=== PATIENT | female | born 1945 | race Caucasian/White ===

== ENCOUNTER 2017-05-24 09:57 | Emergency (ER) | payer MEDICARE, BC ==
[2017-05-24 10:07] VITALS: BP 107/50
--- NOTE | 2017-05-24 10:20 | UC ---
Nausea/Vomiting/Diarrhea HPI - HPI Summary HPI Summary: 72 year old female presents with complains of vomiting blood. - History of Current Complaint Chief Complaint: UCGI Stated Complaint: STOMACH ISSUES Time Seen by Provider: 05/24/17 10:14 Hx Obtained From: Patient Onset/Duration: Sudden Onset Severity Initially: Moderate Severity Currently: Moderate Pain Scale Used: 0-10 Numeric - 5 Location: Epigastric Character: Sharp - Allergies/Home Medications Allergies/Adverse Reactions: Allergies Allergy/AdvReac Type Severity Reaction Status Date / Time Latex Allergy Rash Verified 05/24/17 10:08 Bandaids Allergy Rash Uncoded 05/24/17 10:08 Home Medications: Home Medications Aspirin [Aspirin 81 MG TAB] 2 tab PO ONCE 05/24/17 [History Confirmed 05/24/17] Naproxen Sodium [Naproxen Sodium 220 mg] 2 tab PO Q12HR PRN 05/24/17 [History Confirmed 05/24/17] Sertraline* [Zoloft*] 50 mg PO DAILY 05/24/17 [History Confirmed 05/24/17] PMH/Surg Hx/FS Hx/Imm Hx Previously Healthy: Yes - Surgical History Surgical History: Yes Surgery Procedure, Year, and Place: Benign ovarian cyst x 2. Right thumb surgery. - Family History Known Family History: Positive: None - Social History Alcohol Use: Occasionally Substance Use Type: None Smoking Status (MU): Never Smoked Tobacco - Immunization History Most Recent Influenza Vaccination: NOT UTD Review of Systems Constitutional: Negative Skin: Negative Eyes: Negative ENT: Negative Respiratory: Negative Cardiovascular: Negative Gastrointestinal: Diarrhea, Other - vomiting blood Genitourinary: Negative Motor: Negative Neurovascular: Negative Musculoskeletal: Negative Neurological: Negative Psychological: Negative All Other Systems Reviewed And Are Negative: Yes Physical Exam Triage Information Reviewed: Yes Vital Signs: Initial Vital Signs Temp 36.1 C 05/24/17 10:00 Pulse 70 05/24/17 10:00 Resp 18 05/24/17 10:00 BP 107/50 05/24/17 10:00 Pulse Ox 99 05/24/17 10:00 Vital Signs Reviewed: Yes Eye Exam: Normal ENT Exam: Normal Dental Exam: Normal Neck exam: Normal Neck: Positive: 1 Respiratory Exam: Normal Cardiovascular Exam: Normal Abdominal Exam: Normal Musculoskeletal Exam: Normal Neurological Exam: Normal Psychological Exam: Normal Skin Exam: Normal Naus/Vom/Diarrhea Course/Dx - Differential Dx/Diagnosis Provider Diagnoses: hemoptysis. epigastric pain Condition At Discharge: Stable Discharge - Discharge Plan Condition: Stable Disposition: OTHER Discharge Disposition Comment: patient suggested to go to the er Patient Education Materials: Gastrointestinal Bleeding (ED) Referrals: Meet Hines MD [Primary Care Provider] - Additional Instructions: PATIENT SUGGESTED TO GO TO THE ER FOR GI BLEED
== END 2017-05-24 10:27 ==
LOC: UCEAST 09:57
DX: R04.2 Hemoptysis (principal); R10.13 Epigastric pain; R19.7 Diarrhea, unspecified; R11.10 Vomiting, unspecified; Z91.040 Latex allergy status; Z88.8 Allergy status to other drugs, medicaments and biological substances
CPT/HCPCS: 99212; G0463

== ENCOUNTER 2017-05-24 10:45 | Emergency (ER) | payer MEDICARE, BC ==
[2017-05-24 11:57] LABS: ABS Basophils 0 10^3/ul (0-0.2); ABS Eosinophils 0.2 10^3/ul (0-0.6); ABS Monocytes 0.7 10^3/ul (0-0.8); ABS Neutrophils 4.3 10^3/ul (1.5-7.7); ABS Nucleated RBC 0 10^3/ul; Eosinophil % 2.8 % (0-6); Hematocrit 42 % (35-47); Hemoglobin 14.1 g/dl (12.0-16.0); Lymphocyte % 15.7 % (25-47); Mean Corpuscular HGB Conc 34 g/dl (31-36); Mean Corpuscular Hemoglobin 30 pg (27-31); Mean Corpuscular Volume 87 fL (80-97); Mean Platelet Volume 9 um3 (7.4-10.4); Nucleated Red Blood Cells % 0.1; Platelet Count 203 10^3/ul (150-450); Red Blood Count 4.77 10^6/ul (4.0-5.4); Red Cell Distribution Width 14 % (10.5-15); White Blood Count 6.1 10^3/ul (3.5-10.8)
[2017-05-24 12:19] LABS: EGFR Non-African American 75.2 (>60)
[2017-05-24 12:21] LABS: INR 1.1 (0.77-1.02)
[2017-05-24 13:04] VITALS: BP 112/56
--- NOTE | 2017-05-24 17:06 | ED ---
Quentin Luna Julia, scribed for Rip Alamo MD on 05/24/17 at 1133 . Abdominal Pain/Female - HPI Summary HPI Summary: This patient is a 72 year old F presenting to [facility] accompanied by her with a chief complaint of abdominal pain and hematemesis since yesterday at 19: 00. The patient rates the pain 0/10 in severity. Symptoms aggravated by nothing. Symptoms alleviated by vomiting. Patient reports vomiting with about a tablespoon of bright red blood and a headache and diarrhea occurring yesterday. Patient denies pain or BM today. - History of Current Complaint Chief Complaint: EDGIBleed Stated Complaint: GI PROBLEM-SENT FROM Time Seen by Provider: 05/24/17 11:22 Hx Obtained From: Patient Onset/Duration: Resolved Severity Currently: None Pain Intensity: 0 Pain Scale Used: 0-10 Numeric Aggravating Factor(s): Nothing Alleviating Factor(s): Vomiting Associated Signs and Symptoms: Positive: Other: - headache and diarrhea occurring yesterday Allergies/Adverse Reactions: Allergies Allergy/AdvReac Type Severity Reaction Status Date / Time Latex Allergy Rash Verified 05/24/17 10:08 Bandaids Allergy Rash Uncoded 05/24/17 10:08 PMH/Surg Hx/FS Hx/Imm Hx GI History: Reports: Hx Gastroesophageal Reflux Disease Musculoskeletal History: Denies: Hx Rheumatoid Arthritis, Hx Osteoporosis Sensory History: Denies: Hx Deafness - Surgical History Surgery Procedure, Year, and Place: Benign ovarian cyst x 2. Right thumb surgery. GI scope permormed March 2017. Infectious Disease History: No Infectious Disease History: Denies: Traveled Outside the [place] in Last 30 Days - Family History Known Family History: Positive: Cardiac Disease - Social History Alcohol Use: Occasionally Hx Substance Use: No Substance Use Type: Reports: None Hx Tobacco Use: No Smoking Status (MU): Never Smoked Tobacco Review of Systems Positive: Vomiting, Diarrhea, Other - Hematemesis Positive: Headache All Other Systems Reviewed And Are Negative: Yes Physical Exam - Summary Physical Exam Summary: Appearance: The patient is well-nourished in no acute distress and in no acute pain. Skin: The skin is warm and dry and skin color reflects adequate perfusion. HEENT: The head is normocephalic and atraumatic. The pupils are equal and reactive. The conjunctivae are clear and without drainage. Nares are patent and without drainage. Mouth reveals moist mucous membranes and the throat is without erythema and exudate. The external ears are intact. The ear canals are patent and without drainage. The tympanic membranes are intact. Neck: the neck is supple with full range of motion and non-tender. There are no carotid bruits. There is no neck vein distension. Respiratory: Chest is non-tender. Lungs are clear to auscultation and breath sounds are symmetrical and equal. Cardiovascular: Heart is regular rate and rhythm. There is no murmur or rub auscultated. There is no peripheral edema and pulses are symmetrical and equal. Abdomen: The abdomen is soft and non-tender. There are normal bowel sounds heard in all four quadrants and there is no organomegaly palpated. Musculoskeletal: There is no back tenderness noted. Extremities are non-tender with full range of motion. There is good capillary refill. There is no peripheral edema or calf tenderness elicited. Neurological: Patient is alert and oriented to person, place and time. The patient has symmetrical motor strength in all four extremities. Cranial nerves are grossly intact. Deep tendon reflexes are symmetrical and equal in all four extremities. Psychiatric: The patient has an appropriate affect and does not exhibit any anxiety or depression. Triage Information Reviewed: Yes Vital Signs On Initial Exam: Initial Vitals Temp Pulse Resp BP Pulse Ox 97.7 F 62 15 114/70 98 05/24/17 10:50 05/24/17 10:50 05/24/17 10:50 05/24/17 10:50 05/24/17 10:50 Vital Signs Reviewed: Yes Diagnostics - Vital Signs Vital Signs Temp Pulse Resp BP Pulse Ox 05/24/17 10:50 97.7 F 62 15 114/70 98 - Laboratory Lab Results: Lab Results 05/24/17 05/24/17 05/24/17 Range/Units 11:48 11:48 11:48 WBC 6.1 (3.5-10.8) 10^3/ul RBC 4.77 (4.0-5.4) 10^6/ul Hgb 14.1 (12.0-16.0) g/dl Hct 42 (35-47) % MCV 87 (80-97) fL MCH 30 (27-31) pg MCHC 34 (31-36) g/dl RDW 14 (10.5-15) % Plt Count 203 (150-450) 10^3/ul MPV 9 (7.4-10.4) um3 Neut % (Auto) 70.0 (38-83) % Lymph % (Auto) 15.7 L (25-47) % Wright % (Auto) 10.9 H (1-9) % Eos % (Auto) 2.8 (0-6) % Baso % (Auto) 0.6 (0-2) % Absolute Neuts (auto) 4.3 (1.5-7.7) 10^3/ul Absolute Lymphs (auto) 1.0 (1.0-4.8) 10^3/ul Absolute Monos (auto) 0.7 (0-0.8) 10^3/ul Absolute Eos (auto) 0.2 (0-0.6) 10^3/ul Absolute Basos (auto) 0 (0-0.2) 10^3/ul Absolute Nucleated RBC 0 10^3/ul Nucleated RBC % 0.1 INR (Anticoag Therapy) 1.10 H (0.77-1.02) Sodium 134 (133-145) mmol/L Potassium 3.5 (3.5-5.0) mmol/L Chloride 101 (101-111) mmol/L Carbon Dioxide 29 (22-32) mmol/L Anion Gap 4 (2-11) mmol/L BUN 12 (6-24) mg/dL Creatinine 0.76 (0.51-0.95) mg/dL Est GFR ( Amer) 96.8 (>60) Est GFR (Non-Af Amer) 75.2 (>60) BUN/Creatinine Ratio 15.8 (8-20) Glucose 101 H (70-100) mg/dL Calcium 9.3 (8.6-10.3) mg/dL Total Bilirubin 0.50 (0.2-1.0) mg/dL AST 26 (13-39) U/L ALT 20 (7-52) U/L Alkaline Phosphatase 69 (34-104) U/L Total Protein 7.6 (6.4-8.9) g/dL Albumin 3.8 (3.2-5.2) g/dL Globulin 3.8 (2-4) g/dL Albumin/Globulin Ratio 1.0 (1-3) Result Diagrams: 05/24/17 11:48 05/24/17 11:48 Lab Statement: Any lab studies that have been ordered have been reviewed, and results considered in the medical decision making process. Abdominal Pain Fem Course/Dx - Course Course Of Treatment: was sent over from [facility] asymptomatic after vomiting up a little blood yesterday after not feeling well all day and sleeping most of the day. She feels better today. No black stools although she hasn't had a stool since Thursday. She looked well and her labs were fine with a NL H&H and a NL BUN/Creat. I don't think this is anything dangerous but she did have an EGD a couple years ago which showed gastric erosions so I will refer her back to Dr. Hines to consider refering her back to Dr. Larsen. I encouraged her to take her prn famotidine BID. - Diagnoses Provider Diagnoses: Hematemesis Discharge - Discharge Plan Condition: Stable Disposition: HOME Patient Education Materials: Hematemesis (ED) Referrals: Meet Hines MD [Primary Care Provider] - Additional Instructions: Patient is instructed to take her Famotidine every day and to follow up with Dr. Dsouza, PCP. RETURN TO THE EMERGENCY DEPARTMENT FOR CHANGING OR WORSENING SYMPTOMS. The documentation as recorded by the Quentin dumont Julia accurately reflects the service I personally performed and the decisions made by me, Rip Alamo MD.
== END 2017-05-24 13:31 | disposition home or self-care (01) ==
LOC: ED 10:45
DX: K92.0 Hematemesis (principal); R51 Headache; R19.7 Diarrhea, unspecified; R11.10 Vomiting, unspecified
CPT/HCPCS: 36415; 80053; 85025; 85610; 99282

== ENCOUNTER 2017-12-11 16:13 | Emergency (ER) | payer MEDICARE, OTHER ==
[2017-12-11 16:26] VITALS: BP 114/76
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
== END 2017-12-11 17:30 | disposition home or self-care (01) ==
LOC: UCEAST 16:13
DX: S16.1XXA Strain of muscle, fascia and tendon at neck level, initial encounter (principal); Z91.040 Latex allergy status; Z88.8 Allergy status to other drugs, medicaments and biological substances; V49.60XA Unspecified car occupant injured in collision with unspecified motor vehicles in traffic accident, initial encounter; Y92.9 Unspecified place or not applicable
CPT/HCPCS: 72020; 72050; 99212; G0463

== ENCOUNTER 2018-08-01 16:13 | Emergency (ER) | payer MEDICARE, BC ==
--- OUTSIDE RECORDS SUMMARY | 2018-08-01 16:22 | XMS REPORT | Continuity of Care Document ---
:1945 External Reference #:[id number] Author Name Meet Hines MD Address [facility] [place] [address] Care Team Providers Name Role Phone Meet Hines MD FACP Care Team Information Proof Clerk Unavailable Meet Hines MD FACP Primary Care Physician Unavailable Payers Date Identification Numbers Payment Provider Subscriber Effective: 2012 Policy Number: [id number] [place] Ankita Kunz PayID: [id number] [address] [place] [address] Policy Number: [id number] [facility] Brendasuzi PayID: [id number] [address] [place] [address] Advance Directives Description No Information Available Problems Date Description Provider Status Onset: 05/12/2008 Depressive disorder Meet Hines MD Active Onset: 11/06/2010 Vitamin D deficiency Meet Hines MD Active Onset: 04/29/2012 Hormone replacement therapy Meet Hines MD Active Onset: 01/04/2016 Moderate recurrent major depression Meet Hines MD Active Onset: 09/10/2015 Localized, 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 fat (05/31/2010) (age Causes embolism. 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 Guns in Home No Currently Active Patient is currently sexually active Allergies, Adverse Reactions, Alerts Date Description Reaction Status Severity Comments 08/29/2008 NKDA Active 07/14/2007 Flagyl Inactive Not sure, with second use had some issues Medications Medication Date Status Form Strength Qnty SIG Indications Ordering Provider Trazodone HCL Active Tablets 50mg 30tabs 1 tab by G47.00 Dsouza A 019 mouth every MD Flora night at bedtime Sertraline Active Tablets 100mg 30tabs take 1 F33.1 Dsouza A HCL 018 tablet by MD Flora mouth daily for depression Tylenol Active Tablets 325mg 1-2 by mouth M19.041 Dsouza A 016 three times MD Flora a day as needed M54.5 Epipen 02/06/2015 Active Solution 0.3mg/0.3ML 1units use as T63.461A Dsouza 2-Eric Auto-Inject directed A Flora, as needed MD Luna 07/29/2014 Active Capsules 1mg 1 mg G47.00 Unknown n orally at night as needed for insomnia. Vitamin 11/01/2013 Active Liquid 1000Units / 15 drops 268.9 Dsouza D3 Drop twice a A sg Hines MD 04/27/2013 Active Chewtabs 500mg 2 chew and 530.81 Dsouza swallow by A jesica Hines MD tablets as needed 4 times a day Cetirizi 08/23/2012 Active Tablets 10mg take 1 995.3 Unknown ne HCL tablet by mouth daily for hayfever Famotidi 06/03/2011 Active Tablets 20mg 60tabs take one K21.9 Dsouza ne tablet by A jesica Hines MD twice a day as needed for gastroesop hageal reflux disease Proctoso 12/10/2010 Active Cream 2.5% 28.350g apply K64.4 Dsouza l HC m topically A [place], to MD affected area 3 times a day Diazepam 08/29/2008 Active Tablets 5mg 30tabs take / M54.89 Dsouza to 1 A [place], tablet by mouth at bed time as needed for muscle spasm with pain M62.838 Estrogen & Progesterone 07/13/2007 Active bid 627.2 Amy Fonseca MD V07.4 Shingrix 12/24 Hx Suspension Rec 50mc 1uni one intramuscular Z00. Meet g ts dose now and repeat 01 MD Flora - 2nd dose after 2-6 06/03 months. Prevnar 13 12/24 Hx Suspension 1uni administer half a Z00. Dsouza ts milliliters 01 MD Flora - intramuscularly one 06/03 time for inactivated vaccination to prevent pneumococcal infection Sertraline HCL 12/23 Hx Tablets 50mg 60ta take 2 tablets by F33. Meet bs mouth daily for 1 MD Flora - depression 12/14 Tinidazole 04/03 Hx Tablets 500m 12ta Take 4 tablets by R19. Meet g bs mouth once daily 7 MD Flora - with food for 3 Sertraline HCL 03/04 Hx Tablets 25mg 30ta take 1 tablet by F33. Meet bs mouth daily for 1 MD Flora - social anxiety and 12/23 depression ( of 75 mg daily by combining with 50 mg tablet) Sertraline HCL 01/17 Hx Tablets 50mg 30ta take 1 tablet by F33. Dsouza bs mouth daily for 1 MD Flora - depression 12/23 Sertraline HCL 01/03 Hx Tablets 25mg 30ta Take 1 tablet by F3Peg. Meet bs mouth daily for 1 MD Flora - depression 01/17 Cyclobenzaprine HCL 11/11 Hx Tablets 10mg 30ta Take 1 tablet by S33. Meet bs mouth 3 times per 5xxA MD Flora - day for muscle 06/03 spasm with pain needed. Naproxen Sodium 10/31 Hx Tablets 220m 2 tab by mouth 719. Jak g twice a day with [address] [place], - food [employer] 11/08 724.3 Flexeril 10/24/2014 - Hx Tablets 10mg 30tabs Take 1 tablet 847.2 Jak Terry 11/12/[address] [place], [employer] times per day for muscle spasm with pain. Use for 5-7 days and then stop. Aleve 07/26/2014 - Hx Tablets 220mg 2 tabs by 719.46 Jak Terry 08/05/2014 mouth twice a [address] [place], [employer] day for elbow joint pain 724.5 841.8 Activated 03/22/2014 - Hx OTC Rx: 2 787.3 Jak Terry Charcoal 11/07/2014 tab by mouth [address] [place], once for [employer] stomach and bowel gas, and then per directions on bottle. Kefir 03/22/2014 - Hx Drink Kefir 787.3 Jak D 11/07/2014 or other [facility] cultured milk [employer] products at least once daily to promote healthy bowel poli. Betamethasone 07/05/2013 - Hx Cream 0.05% 45g apply 373.32 Dsouza A Dipropionate 11/07/2014 m topically to MD Flora the affected area two times a day for skin condition with itching Vitamin D3 04/27/2013 - Hx Liquid 5000Uni 10,000 units 268.9 Dsouza A 04/27/2013 t/ML by mouth MD Flora every week Vitamin D3 04/27/2013 - Hx Liquid 1000Uni 15 drops 268.9 Dsouza A 11/01/2013 ts / every Thursday MD Flora Drop Vitamin D3 10/26/2012 - Hx Capsules 5000Uni 2 by mouth 530.81 Dsouza A 10/26/2012 t every week MD Flora Amitriptyline HCL 09/30/2012 - Hx Tablets 25mg 90t take 1 tablet F33.1 Dsouza A 09/30/2012 abs by mouth MD Flora daily at bedtime for depression Amitriptyline HCL 09/30/2012 - Hx Tablets 10mg 90t take 1 tablet 311 Jak D 08/04/[address] [place], daily at [facility] bedtime for depression 780.52 Amitriptyline 08/26/2012 - Hx Tablets 10mg 30tabs Take 1 tablet F33.1 Dsouza A HCL 09/25/2012 by mouth MD Flora daily at bedtime for depression Zostavax 04/29/2012 - Hx Solution [id number] 1units 1 injection Dsouza A 08/25/2012 Rec nt/0.6 MD Flora 5ML Vitamin D3 11/04/2011 - Hx Tablets 2000Un 1 by mouth 268.9 Dsouza A 04/24/2012 it every day MD Flora Melatonin 03/31/2011 - Hx Capsules 5mg 30caps 1 po qhs 780.52 Dsouza A 11/04/2011 MD Flora Anusol-HC 03/31/2011 - Hx Cream 2.5% 30gm Apply 1 455.3 Dsouza A 04/29/2012 application MD Flora topically to affected area 3 times a day for hemorrhoids Amitriptyline 03/31/2011 - Hx Tablets 25mg 90tabs Take 1 tablet 311 Dsouza A HCL 08/26/2012 by mouth MD Flora daily at bedtime for depression V58.69 Amitriptyline HCL 02/03/2011 - Hx Tablets 10mg 2 by 311 Unknown 03/31/2011 mouth every day Vitamin D3 11/06/2010 - Hx Capsules 2000Unit 1 po qd 268.9 Dsouza A 09/23/2011 MD Flora Trazodone HCL 04/30/2010 - Hx Tablets 50mg 135t 1 /2 tab F33.1 Dsouza A 02/03/2011 abs by mouth MD Flora every night G47.00 Zyrtec Allergy 10/30/2009 - Hx Capsules 10mg 1 po qd 477.9 Dsouza A 11/04/2011 MD Flora Penicillin V 10/30/2009 - Hx Tablets 500mg 40tabs 1 po q6h Dsouza A Potassium 11/09/2009 MD Flora Amoxicillin 07/03/2009 - Hx Capsules 500mg 30caps 1 po tid Dsouza A 10/30/2009 MD Flora Trazodone HCL 06/25/2009 - Hx Tablets 50mg 60tabs 2 po qhs 311 Dsouza A 04/30/2010 MD Flora 780.52 Mineral Oil 06/20/2009 - Hx Oil 1-2 tbsp po 564.00 Dsouza A 10/30/2009 qd MD Flora Trazodone HCL 06/20/2009 - Hx Tablets 100mg 1/2-1 po qhs F33.1 Dsouza A 06/25/2009 MD Flora G47.00 Trazodone HCL 05/15/2009 - Hx Tablets 100mg 30tabs 1 po qhs F33.1 Dsouza A 06/20/2009 MD Flora G47.00 Trazodone HCL 05/02/2009 - Hx Tablets 50mg 30tabs 1 PO QHS for 311 Dsouza A 05/15/2009 1 week and MD Flora after that 2 PO QHS 780.52 Tamiflu 11/01/2008 - Hx Capsules 75mg 10caps 1 PO bid For Dsouza A 12/05/2008 5 Days MD Flora Diflucan 08/29/2008 - Hx Tablets 150mg 5tabs 1 po qd prn Dsouza A 12/05/2008 MD Flora Ciprofloxacin HCL 08/29/2008 - Hx Tablets 250mg 20tabs 1 PO bid For Dsouza A 12/05/2008 5 Days MD Flora Caltrate 600+D 08/29/2008 - Hx Tablets 1 PO bid V7 Dsouza A 09/23/2011 0. MD Flora 0 Melatonin 07/13/2007 - Hx Capsules 3mg 1 po qhs prn 78 Unknown 05/02/2009 0. 52 Nasonex 07/13/2007 - Hx Suspension 50mcg/A 17gm 1 Intranasal 47 Dsouza A 03/31/2011 ct qd prn 7. MD Flora 9 Methylprednisolone 07/13/2007 - Hx Tablets 4mg prn 72 Unknown 08/29/2008 4. 5 Tri-Est - Hx 2.5mg 1/2 lozenge Unknown 11/04/2011 qd Immunizations CPT Code Status Date Vaccine Reaction Lot # [id number] Given 01/23/2018 Influenza Vaccine Quadrivalent Preser/Antibiotic Free Im Use 51277 Given 2016 Influenza Virus Split 3 Yrs And Above For Intramuscular Use 21893 Given 03/18/2013 Influenza Virus Split 3 Yrs And Above For Intramuscular Use 04856 Given 05/06/2012 Zoster Shingles Vaccine For Subcutaneous Injection 78189 Given 03/29/2012 Influenza Virus Split 3 Yrs And Above For Intramuscular Use 27792 Given 04/29/2011 Influenza Virus Split 3 Yrs And Above For Intramuscular Use 15235 Given 04/30/2010 Pneumococcal Vaccine 2Yrs Or Older PNEUMO [id number] 24123 Given 03/25/2010 Influenza Virus Split 3 Yrs And Above For Intramuscular Use 95260 Given 08/29/2008 Tdap-Tetanus, Diphtheria TDAP [id number] Toxoids/Acellular Pertussis Vaccine 7+ [id number] Refused 03/31/2011 Influenza Virus Split 3 Yrs And 03/31/11 Pt will get her Above For Intramuscular Use flu shot at a local pharmacy due to cost issues. Vital Signs Date Vital Result Comment 07/26/2018 1:36pm Body Temperature 98.4 F 07/21/2018 1:18pm Body Temperature 98.1 F 06/03/2018 1:02pm Heart Rate 68 /min BP Systolic 100 mmHg BP Diastolic 60 mmHg Weight 142.00 lb 12/24/2017 1:03pm Heart Rate 64 /min BP Systolic 105 mmHg BP Diastolic 65 mmHg BMI (Body Mass Index) 25.8 kg/m2 Weight 140.00 lb Height 61.75 inches 5'1.75" 09/15/2017 2:33pm Body Temperature 99.3 F Heart Rate 80 /min 07/02/2017 1:12pm Heart Rate 76 /min Weight 142.00 lb 12/23/2016 1:08pm Body Temperature 98.4 F O2 % BldC Oximetry 97 % Heart Rate 78 /min BP Systolic 105 mmHg BP Diastolic 65 mmHg BMI (Body Mass Index) 25.6 kg/m2 Weight 140.00 lb Height 62 inches 5'2" 04/03/2016 5:11pm Body Temperature 98.4 F Heart Rate 80 /min BP Systolic 100 mmHg BP Diastolic 70 mmHg 03/04/2016 4:21pm Heart Rate 68 /min BP Systolic 100 mmHg BP Diastolic 70 mmHg Weight 138.00 lb 11/12/2015 1:29pm O2 % BldC Oximetry 97 % Heart Rate 69 /min BP Systolic 105 mmHg BP Diastolic 70 mmHg BMI (Body Mass Index) 26.0 kg/m2 Weight 140.00 lb Height 61.5 inches 5'1.50" 09/10/2015 2:54pm Weight 140.00 lb 11/08/2014 1:07pm O2 % BldC Oximetry 97 % Heart Rate 77 /min BP Systolic 100 mmHg BP Diastolic 70 mmHg BMI (Body Mass Index) 25.1 kg/m2 Weight 137.00 lb Height 62 inches 5'2" 10/31/2014 3:57pm Body Temperature 98.7 F O2 % BldC Oximetry 98 % Heart Rate 65 /min BP Systolic 98 mmHg BP Diastolic 70 mmHg 10/24/2014 11:16am Body Temperature 98.0 F O2 % BldC Oximetry 96 % Heart Rate 74 /min BP Systolic 108 mmHg BP Diastolic 54 mmHg BMI (Body Mass Index) 23.0 kg/m2 Weight 130.00 lb Height 63 inches 5'3" 08/04/2014 11:02am Body Temperature 99.2 F O2 % BldC Oximetry 97 % Heart Rate 70 /min BP Systolic 100 mmHg BP Diastolic 62 mmHg Height 63 inches 5'3" 07/26/2014 3:46pm Body Temperature 97.7 F O2 % BldC Oximetry 99 % Heart Rate 63 /min BP Systolic 118 mmHg BP Diastolic 67 mmHg Height 63 inches 5'3" 07/21/2014 3:37pm Body Temperature 98.3 F O2 % BldC Oximetry 98 % Heart Rate 77 /min BP Systolic 100 mmHg BP Diastolic 62 mmHg Height 63 inches 5'3" 03/22/2014 9:19am Body Temperature 98.3 F O2 % BldC Oximetry 97 % Heart Rate 82 /min BP Systolic 102 mmHg BP Diastolic 64 mmHg Height 63 inches 5'3" 11/01/2013 10:03am Body Temperature 98.1 F O2 % BldC Oximetry 98 % Heart Rate 79 /min BP Systolic 105 mmHg BP Diastolic 60 mmHg BMI (Body Mass Index) 24.6 kg/m2 Weight 139.00 lb in office,no clothes Height 63 inches 5'3" 07/05/2013 11:15am Body Temperature 98.5 F O2 % BldC Oximetry 98 % Heart Rate 82 /min 06/24/2013 10:08am Body Temperature 98.5 F 05/30/2013 11:11am Body Temperature 98.8 F O2 % BldC Oximetry 96 % Ra, AT Rest Heart Rate 71 /min BMI (Body Mass Index) 24.4 kg/m2 Weight 138.00 lb Height 63 inches 5'3" 04/27/2013 1:03pm Body Temperature 98.5 F O2 % BldC Oximetry 99 % Ra, AT Rest Heart Rate 73 /min BP Systolic 128 mmHg BP Diastolic 75 mmHg BMI (Body Mass Index) 24.6 kg/m2 Weight 139.00 lb Height 63 inches 5'3" 11/17/2012 9:03am Heart Rate 64 /min BP Systolic 95 mmHg BP Diastolic 60 mmHg BMI (Body Mass Index) 23.9 kg/m2 Weight 135.00 lb Height 63 inches 5'3" 10/26/2012 1:33pm Heart Rate 62 /min BP Systolic 105 mmHg BP Diastolic 60 mmHg BMI (Body Mass Index) 24.3 kg/m2 Weight 137.00 lb Height 63 inches 5'3" 08/26/2012 2:31pm BMI (Body Mass Index) 25.0 kg/m2 Weight 141.00 lb Height 63 inches 5'3" 04/29/2012 11:08am Heart Rate 64 /min BP Systolic 100 mmHg BP Diastolic 60 mmHg BMI (Body Mass Index) 26.2 kg/m2 Weight 148.00 lb Height 63 inches 5'3" 11/04/2011 10:55am Heart Rate 72 /min BP Systolic 105 mmHg BP Diastolic 70 mmHg BMI (Body Mass Index) 25.7 kg/m2 Weight 145.00 lb Height 63 inches 5'3" 06/03/2011 11:12am Heart Rate 60 /min BP Systolic 100 mmHg BP Diastolic 60 mmHg Weight 142.00 lb 03/31/2011 2:30pm Heart Rate 62 /min BP Systolic 128 mmHg BP Diastolic 80 mmHg 11/06/2010 2:27pm Heart Rate 64 /min BP Systolic 105 mmHg BP Diastolic 65 mmHg BMI (Body Mass Index) 25.2 kg/m2 Weight 142.00 lb Height 63 inches 5'3" 04/30/2010 11:20am Heart Rate 66 /min BP Systolic 118 mmHg BP Diastolic 75 mmHg BMI (Body Mass Index) 25.7 kg/m2 Weight 145.00 lb Height 63 inches 5'3" 10/30/2009 11:14am Heart Rate 64 /min BP Systolic 115 mmHg BP Diastolic 70 mmHg BMI (Body Mass Index) 25.2 kg/m2 Weight 142.00 lb Height 63 inches 5'3" 06/25/2009 5:32pm Heart Rate 62 /min BP Systolic 115 mmHg Supine and standing BP Diastolic 75 mmHg Supine and standing 06/20/2009 3:10pm Heart Rate 64 /min BP Systolic 110 mmHg Supine BP Diastolic 70 mmHg Supine BP Systolic Recheck 100 mmHg Standing BP Diastolic Recheck 70 mmHg Standing BMI (Body Mass Index) 25.7 kg/m2 Weight 145.00 lb Height 63 inches 5'3" 05/15/2009 2:52pm Heart Rate 64 /min BP Systolic 122 mmHg BP Diastolic 75 mmHg 05/02/2009 3:08pm Heart Rate 68 /min BP Systolic 122 mmHg BP Diastolic 70 mmHg BMI (Body Mass Index) 25.7 kg/m2 Weight 145.00 lb Height 63 inches 5'3" 08/29/2008 1:40pm Heart Rate 70 /min BP Systolic 125 mmHg BP Diastolic 70 mmHg BMI (Body Mass Index) 25.7 kg/m2 Weight 145.00 lb Height 63 inches 5'3" 06/23/2008 11:31am BMI (Body Mass Index) 26.4 kg/m2 Weight 149.00 lb Height 63 inches 5'3" 05/12/2008 9:52am Heart Rate 78 /min BP Systolic 140 mmHg BP Diastolic 85 mmHg BMI (Body Mass Index) 27.1 kg/m2 Weight 153.00 lb Height 63 inches 5'3" 07/27/2007 4:05pm Heart Rate 68 /min BP Systolic 118 mmHg BP Diastolic 68 mmHg Height 63 inches 5'3" 07/14/2007 3:16pm Body Temperature 98.2 F O2 % BldC Oximetry 96 % Heart Rate 64 /min BP Systolic 140 mmHg BP Diastolic 90 mmHg BP Systolic Recheck 140 mmHg BP Diastolic Recheck 90 mmHg BMI (Body Mass Index) 26.4 kg/m2 Weight 149.00 lb Height 63 inches 5'3" Results Test Date Facility Test Result H/L Range Note CBC No Diff 12/21/2017 [facility] White Blood 7.9 10^3/uL N 3.5-10.8 [place] [address] Count [phone] Red Blood Count 4.54 10^6/uL N 4.00-5.40 Hemoglobin 13.4 g/dL N 12.0-16.0 Hematocrit 39 % N 35-47 Mean Corpuscular Volume 86 fL N 80-97 Mean Corpuscular Hemoglobin 30 pg N 27-31 Mean Corpuscular HGB Conc 35 g/dL N 31-36 Red Cell Distribution Width 14 % N 10.5-15 Platelet Count 212 10^3/uL N 150-450 Mean Platelet Volume 9.4 um3 N 7.4-10.4 Comp Metabolic Panel 12/21/2017 [facility] Sodium 138 mmol/L N 135-145 [place] [address] [phone] Potassium 3.8 mmol/L N 3.5-5.0 Chloride 104 mmol/L N 101-111 Co2 Carbon Dioxide 27 mmol/L N 22-32 Anion Gap 7 mmol/L N 2-11 Glucose 96 mg/dL N 70-100 Blood Urea Nitrogen 14 mg/dL N 6-24 Creatinine 0.69 mg/dL N 0.51-0.95 BUN/Creatinine Ratio 20.3 High 8-20 Calcium 8.8 mg/dL N 8.6-10.3 Total Protein 6.9 g/dL N 6.4-8.9 Albumin 3.8 g/dL N 3.2-5.2 Globulin 3.1 g/dL N 2-4 Albumin/Globulin Ratio 1.2 N 1-3 Total Bilirubin 0.50 mg/dL N 0.2-1.0 Alkaline Phosphatase 55 U/L N 34-104 Alt 10 U/L N 7-52 Ast 16 U/L N 13-39 Egfr Non- 84.1 >60 Egfr 101.8 >60 1 Lipid Profile 12/21/2017 [facility] Triglycerides 139 mg/dL 2 (Trig/Chol/HDL) [place] [address] [phone] Cholesterol 213 mg/dL 3 HDL Cholesterol 39.6 mg/dL 4 LDL Cholesterol 146 mg/dL 5 Laboratory test 07/27/2017 [facility] Cytology SEE RESULT 6 [place] [address] BELOW [phone] Xray 07/02/2017 [facility] Shoulder, Normal [address], [place] [address] Of 2 V RT [phone] CBC Auto Diff 05/24/2017 [facility] White Blood 6.1 10^3/uL N 3.5-10 [place] [address] Count .8 [phone] Red Blood Count 4.77 10^6/uL N 4.0-5.4 Hemoglobin 14.1 g/dL N 12.0-16.0 Hematocrit 42 % N 35-47 Mean Corpuscular Volume 87 fL N 80-97 Mean Corpuscular Hemoglobin 30 pg N 27-31 Mean Corpuscular HGB Conc 34 g/dL N 31-36 Red Cell Distribution Width 14 % N 10.5-15 Platelet Count 203 10^3/uL N 150-450 Mean Platelet Volume 9 um3 N 7.4-10.4 Abs Neutrophils 4.3 10^3/uL N 1.5-7.7 Abs Lymphocytes 1.0 10^3/uL N 1.0-4.8 Abs Monocytes 0.7 10^3/uL N 0-0.8 Abs Eosinophils 0.2 10^3/uL N 0-0.6 Abs Basophils 0 10^3/uL N 0-0.2 Abs Nucleated RBC 0 10^3/uL Granulocyte % 70.0 % N 38-83 Lymphocyte % 15.7 % Low 25-47 Monocyte % 10.9 % High 1-9 Eosinophil % 2.8 % N 0-6 Basophil % 0.6 % N 0-2 Nucleated Red Blood Cells % 0.1 Comp Metabolic Panel 05/24/2017 [facility] Sodium 134 mmol/L N 133-145 [place] [address] [phone] Potassium 3.5 mmol/L N 3.5-5.0 Chloride 101 mmol/L N 101-111 Co2 Carbon Dioxide 29 mmol/L N 22-32 Anion Gap 4 mmol/L N 2-11 Glucose 101 mg/dL High 70-100 Blood Urea Nitrogen 12 mg/dL N 6-24 Creatinine 0.76 mg/dL N 0.51-0.95 BUN/Creatinine Ratio 15.8 N 8-20 Calcium 9.3 mg/dL N 8.6-10.3 Total Protein 7.6 g/dL N 6.4-8.9 Albumin 3.8 g/dL N 3.2-5.2 Globulin 3.8 g/dL N 2-4 Albumin/Globulin Ratio 1.0 N 1-3 Total Bilirubin 0.50 mg/dL N 0.2-1.0 Alkaline Phosphatase 69 U/L N 34-104 Alt 20 U/L N 7-52 Ast 26 U/L N 13-39 Egfr Non- 75.2 >60 Egfr 96.8 >60 7 Inr/Protime 05/24/2017 [facility] Inr 1.10 High 0.77-1.02 8 [place], [place] [address] [phone] Laboratory test 12/18/2016 [facility] Vitamin D 34.1 N 30-50 [place] [address] Total 25(Oh) ng/mL [phone] CBC No Diff 12/18/2016 [facility] White Blood 7.3 N 3.5-10.8 [place] [address] Count 10^3/uL [phone] Red Blood Count 4.70 10^6/uL N 4.0-5.4 Hemoglobin 13.9 g/dL N 12.0-16.0 Hematocrit 42 % N 35-47 Mean Corpuscular Volume 90 fL N 80-97 Mean Corpuscular Hemoglobin 30 pg N 27-31 Mean Corpuscular HGB Conc 33 g/dL N 31-36 Red Cell Distribution Width 13 % N 10.5-15 Platelet Count 209 10^3/uL N 150-450 Mean Platelet Volume 10 um3 N 7.4-10.4 Comp Metabolic Panel 12/18/2016 [facility] Sodium 133 mmol/L N 133-145 [place], [place] [id number] [phone] Potassium 4.0 mmol/L N 3.5-5.0 Chloride 101 mmol/L N 101-111 Co2 Carbon Dioxide 27 mmol/L N 22-32 Anion Gap 5 mmol/L N 2-11 Glucose 92 mg/dL N 70-100 Blood Urea Nitrogen 11 mg/dL N 6-24 Creatinine 0.66 mg/dL N 0.51-0.95 BUN/Creatinine Ratio 16.7 N 8-20 Calcium 8.8 mg/dL N 8.6-10.3 Total Protein 7.3 g/dL N 6.4-8.9 Albumin 3.8 g/dL N 3.2-5.2 Globulin 3.5 g/dL N 2-4 Albumin/Globulin Ratio 1.1 N 1-3 Total Bilirubin 0.50 mg/dL N 0.2-1.0 Alkaline Phosphatase 59 U/L N 34-104 Alt 19 U/L N 7-52 Ast 21 U/L N 13-39 Egfr Non- 88.8 N >60 Egfr 114.2 N >60 9 Basic Metabolic Panel 04/04/2016 [facility] Sodium 135 mmol/L N 133-145 [place] [address] [phone] Potassium 4.1 mmol/L N 3.5-5.0 Chloride 102 mmol/L N 101-111 Co2 Carbon Dioxide 30 mmol/L N 22-32 Anion Gap 3 mmol/L N 2-11 Glucose 95 mg/dL N 70-100 Blood Urea Nitrogen 7 mg/dL N 6-24 Creatinine 0.68 mg/dL N 0.51-0.95 BUN/Creatinine Ratio 10.3 N 8-20 Calcium 9.4 mg/dL N 8.6-10.3 Egfr Non- 85.8 N >60 Egfr 110.3 N >60 10 Laboratory test 04/04/2016 [facility] Giardia SEE RESULT 11 [place] [address] Antigen Screen BELOW [phone] Entamoeba histolytica Antigen NOT DETECTED N 12 Stool Culture SEE RESULT BELOW 13 CBC Auto Diff 04/04/2016 [facility] White Blood 7.6 10^3/uL N 3.5-10.8 [place] [address] Count [phone] Red Blood Count 5.12 10^6/uL N 4.0-5.4 Hemoglobin 14.7 g/dL N 12.0-16.0 Hematocrit 45 % N 35-47 Mean Corpuscular Volume 87 fL N 80-97 Mean Corpuscular Hemoglobin 29 pg N 27-31 Mean Corpuscular HGB Conc 33 g/dL N 31-36 Red Cell Distribution Width 13 % N 10.5-15 Platelet Count 246 10^3/uL N 150-450 Mean Platelet Volume 10 um3 N 7.4-10.4 Abs Neutrophils 5.1 10^3/uL N 1.5-7.7 Abs Lymphocytes 1.7 10^3/uL N 1.0-4.8 Abs Monocytes 0.6 10^3/uL N 0-0.8 Abs Eosinophils 0.1 10^3/uL N 0-0.6 Abs Basophils 0.1 10^3/uL N 0-0.2 Abs Nucleated RBC 0 10^3/uL N Granulocyte % 67.5 % N 38-83 Lymphocyte % 22.1 % Low 25-47 Monocyte % 8.0 % N 1-9 Eosinophil % 1.7 % N 0-6 Basophil % 0.7 % N 0-2 Nucleated Red Blood Cells % 0 N Laboratory test 11/07/2015 [facility] Vitamin D 34.0 ng/mL N 30-50 14, 15 [place] [address] Total 25(Oh) [phone] CBC No Diff 11/07/2015 [facility] White Blood 6.3 N 3.5-10.8 [place] [address] Count 10^3/uL [phone] Red Blood Count 4.73 10^6/uL N 4.0-5.4 Hemoglobin 13.7 g/dL N 12.0-16.0 Hematocrit 42 % N 35-47 Mean Corpuscular Volume 88 fL N 80-97 Mean Corpuscular Hemoglobin 29 pg N 27-31 Mean Corpuscular HGB Conc 33 g/dL N 31-36 Red Cell Distribution Width 13 % N 10.5-15 Platelet Count 201 10^3/uL N 150-450 Mean Platelet Volume 11 um3 High 7.4-10.4 Lipid Profile 11/07/2015 [facility] Triglycerides 127 mg/dL N <150 16 (Trig/Chol/HDL) [place] [address] [phone] Cholesterol 173 mg/dL N <200 17 HDL Cholesterol 40.3 mg/dL N >35 18 LDL Cholesterol 107 mg/dL N <160 19 Basic Metabolic Panel 11/07/2015 [facility] Sodium 134 mmol/L N 133-145 [place], [place] [id number] [phone] Potassium 3.9 mmol/L N 3.5-5.0 Chloride 102 mmol/L N 101-111 Co2 Carbon Dioxide 28 mmol/L N 22-32 Anion Gap 4 mmol/L N 2-11 Glucose 98 mg/dL N 70-100 Blood Urea Nitrogen 8 mg/dL N 6-24 Creatinine 0.62 mg/dL N 0.51-0.95 BUN/Creatinine Ratio 12.9 N 8-20 Calcium 9.1 mg/dL N 8.6-10.3 Egfr Non- 95.7 N >60 Egfr 123.1 N >60 20 Laboratory test 04/10/2015 [facility] Surgical SEE RESULT [address] [place] [address] Pathology BELOW [phone] Laboratory test 02/06/2015 [facility] Uric Acid 3.0 mg/dL N 2.3-6[place] [address] [phone] Laboratory test 10/31/2014 [facility] Vitamin D Total 47.3 ng/ mL N 30-50 [place] [address] 25(Oh) [phone] CBC No Diff 10/31/2014 [facility] White Blood 6.9 10^3/uL N 4.8-10 [place] [address] Count .8 [phone] Red Blood Count 4.71 10^6/uL N 4.0-5.4 Hemoglobin 13.9 g/dL N 12.0-16.0 Hematocrit 43 % N 35-47 Mean Corpuscular Volume 91 fL N 80-97 Mean Corpuscular Hemoglobin 30 pg N 27-31 Mean Corpuscular HGB Conc 33 g/dL N 31-36 Red Cell Distribution Width 13 % N 10.5-15 Platelet Count 202 10^3/uL N 150-450 Mean Platelet Volume 10 um3 N 7.4-10.4 Comp Metabolic Panel 10/31/2014 [facility] Sodium 136 mmol/L N 133-145 [place], [place] [id number] [phone] Potassium 3.9 mmol/L N 3.5-5.0 Chloride 103 mmol/L N 101-111 Co2 Carbon Dioxide 30 mmol/L N 22-32 Anion Gap 3 mmol/L N 2-11 Glucose 92 mg/dL N 70-100 Blood Urea Nitrogen 8 mg/dL N 6-24 Creatinine 0.73 mg/dL N 0.51-0.95 BUN/Creatinine Ratio 11.0 N 8-20 Calcium 9.6 mg/dL N 8.6-10.3 Total Protein 7.2 g/dL N 6.4-8.9 Albumin 4.0 g/dL N 3.2-5.2 Globulin 3.2 g/dL N 2-4 Albumin/Globulin Ratio 1.3 N 1-3 Total Bilirubin 0.40 mg/dL N 0.2-1.0 Alkaline Phosphatase 50 U/L N 34-104 Alt 9 U/L N 7-52 Ast 17 U/L N 13-39 Egfr Non- 79.5 N >60 Egfr 102.3 N >60 22 Order 07/21/2014 [facility] EKG SR [place], [place] [id number] [phone] Vitamin D, 25 04/14/2014 [facility] 25-Hydroxy <4.0 ng/[place] [address] Vitamin D2 [phone] 25-Hydroxy Vitamin D3 43 ng/mL N 25-Hydroxy Vitamin D Total 43 ng/mL N 23 Vitamin D, 25 10/24/2013 [facility] 25-Hydroxy Vitamin <4.0 ng/ [place] [address] D2 [phone] 25-Hydroxy Vitamin D3 29 ng/mL 25-Hydroxy Vitamin D Total 29 ng/mL 25-50 24 Basic Metabolic Panel 10/24/2013 [facility] Sodium 135 mmol/L 133-145 [place] [address] [phone] Potassium 3.9 mmol/L 3.7-5.6 Chloride 105 mmol/L 101-111 Co2 Carbon Dioxide 27 mmol/L 22-32 Anion Gap 3 mmol/L 2-11 Glucose 96 mg/dL 70-100 Blood Urea Nitrogen 9 mg/dL 6-24 Creatinine 0.62 mg/dL 0.51-0.95 BUN/Creatinine Ratio 14.5 8-20 Calcium 9.0 mg/dL 8.6-10.3 Egfr Non- 96.3 >60 Egfr 123.9 >60 25 CBC No Diff 10/24/2013 [facility] White Blood 5.5 10^3/uL 4.8 -10.8 [place] [address] Count [phone] Red Blood Count 4.64 10^6/uL 4.0-5.4 Hemoglobin 13.8 g/dL 12.0-16.0 Hematocrit 41 % 35-47 Mean Corpuscular Volume 88 fL 80-97 Mean Corpuscular Hemoglobin 30 pg 27-31 Mean Corpuscular HGB Conc 34 g/dL 31-36 Red Cell Distribution Width 13 % 10.5-15 Platelet Count 206 10^3/uL 150-450 Mean Platelet Volume 10 um3 7.4-10.4 Laboratory test 05/30/2013 [facility] Surgical RUN DATE: [place] [address] Pathology 06/01/ <SEE [phone] NOTE> Order 11/17/2012 [facility] [place] [address] [phone] Xray 10/28/2012 [facility] Dexa Scan, Normal JER WRIGHT Axial [place] [address] hips, pelvis, [phone] spine) CBC No Diff 10/28/2012 [facility] White Blood 5.5 10^3/uL 4.8 -10 [place] [address] Count .8 [phone] Red Blood Count 4.57 10^6/uL 4.0-5.4 Hemoglobin 14.0 g/dL 12.0-16.0 Hematocrit 41 % 35-47 Mean Corpuscular Volume 89 fL 80-97 Mean Corpuscular Hemoglobin 31 pg 27-31 Mean Corpuscular HGB Conc 34 g/dL 31-36 Red Cell Distribution Width 13 % 10.5-15 Platelet Count 191 10^3/uL 150-450 Mean Platelet Volume 10 um3 7.4-10.4 Basic Metabolic Panel 10/28/2012 [facility] Sodium 139 mmol/L 133-145 [place] [address] [phone] Potassium 4.6 mmol/L 3.5-5.0 Chloride 107 mmol/L 101-111 Co2 Carbon Dioxide 29.0 mmol/L 22-32 Anion Gap 3.0 mmol/L 2-11 Glucose 90 mg/dL 70-100 Blood Urea Nitrogen 7 mg/dL 6-24 Creatinine 0.70 mg/dL 0.50-1.40 BUN/Creatinine Ratio 10.0 8-20 Calcium 9.3 mg/dL 8.1-9.9 Egfr Non- 84.0 >60 Egfr 108.0 >60 27 Vitamin D, 25 10/28/2012 [facility] 25-Hydroxy Vitamin <4.0 ng/ [place] [address] D2 [phone] 25-Hydroxy Vitamin D3 32 ng/mL 25-Hydroxy Vitamin D Total 32 ng/mL 25-80 28 Lipid Profile 10/28/2012 [facility] Triglycerides 78 mg/dL 40 -200 (Trig/Chol/HDL) [place] [address] [phone] Cholesterol 167 mg/dL Less than 200 HDL Cholesterol 39 mg/dL Low 40-60 29 Cholesterol/HDL Ratio 4.3 Average 1-4.44 LDL Cholesterol 112.4 Less Than 160 30 Laboratory test 04/22/2012 [facility] Vitamin D, 30 25 -80 finding 25-Hydroxy Lipid Profile 04/22/2012 [facility] Triglycerides 115 mg/dL 40-200 (Trig/Chol/HDL) [place] [address] [phone] Cholesterol 197 mg/dL Less than 200 HDL Cholesterol 39 mg/dL Low 40-60 31 Cholesterol/HDL Ratio 5.1 AVERAGE High 1-4.44 LDL Cholesterol 135.0 mg/dL Less Than 160 32 Order 11/04/2011 [facility] EKG Normal [place], [place] [address]476 [phone] Basic Metabolic 10/28/2011 [facility] Sodium 135 mmol/L 135- 145 Panel [place], [place] 2170997 [phone] Potassium 4.0 mmol/L 3.5-5.0 Chloride 104 mmol/L 101-111 Co2 (Carbon Dioxide) 29.0 mmol/L 22-32 Anion Gap 2.0 mmol/L 2-11 33 Glucose 97 mg/dL 70-100 BUN 13 mg/dL 6-24 Creatinine 0.7 mg/dL 0.50-1.40 One Over Creatinine 1.42 BUN/Creatinine Ratio 18.6 8-20 Calcium 8.9 mg/dL 8.1-9.9 eGFR Non- 84.2 > 60 eGFR 108.3 > 60 34 CBC No Diff 10/28/2011 [facility] White Blood Count 6.4 CUMM 4.8-10.8 [place] [address] [phone] Red Cell Count 4.48 CUMM 4.2-5.4 Hemoglobin 13.6 g/dL 12.0-16.0 Hematocrit 40 % 35-47 Mean Corpuscular Volume 89 um3 79-97 Mean Corpuscular Hemoglob 30 pg 27-31 Mean Corpuscular HGB Cone 34 g/dL 32-36 Redcell Distribution WDTH 13 % 10.5-15 Platelet Count 206 CUMM 150-450 Mean Platelet Volume 10.2 um3 7.4-10.4 Vitamin D, 25 10/27/2011 [facility] 25-Hydroxy Vitamin <4.0 ng/ mL () [place] [address] D2 [phone] 25-Hydroxy Vitamin D3 27 ng/mL () 25-Hydroxy Vitamin D Total 27 ng/mL 25-80 35 Vitamin D, 25 05/26/2011 [facility] 25-Hydroxy Vitamin <4.0 ng/ mL () [place] [address] D2 [phone] 25-Hydroxy Vitamin D3 32 ng/mL () 25-Hydroxy Vitamin D Total 32 ng/mL () 36 CBC No Diff 11/04/2010 [facility] White Blood Count 7.4 CUMM 4.8-10.8 [place] [address] [phone] Red Cell Count 4.57 CUMM 4.2-5.4 Hemoglobin 13.7 g/dL 12.0-16.0 Hematocrit 42 % 35-47 Mean Corpuscular Volume 91 um3 79-97 Mean Corpuscular Hemoglob 30 pg 27-31 Mean Corpuscular HGB Cone 33 g/dL 32-36 Redcell Distribution WDTH 13 % 10.5-15 Platelet Count 218 CUMM 150-450 Mean Platelet Volume 10.7 um3 High 7.4-10.4 Basic Metabolic Panel 11/04/2010 [facility] Sodium 135 mmol/L 135-145 [place] [address] [phone] Potassium 3.9 mmol/L 3.5-5.0 Chloride 105 mmol/L 101-111 Co2 (Carbon Dioxide) 27.0 mmol/L 22-32 Anion Gap 3.0 mmol/L 2-11 37 Glucose 91 mg/dL 70-100 BUN 11 mg/dL 6-24 Creatinine 0.80 mg/dL 0.50-1.40 One Over Creatinine 1.20 BUN/Creatinine Ratio 13.8 8-20 Calcium 9.0 mg/dL 8.1-9.9 eGFR Non- 72.4 > 60 eGFR 93.2 > 60 38 Lipid Profile 11/04/2010 [facility] Triglyceride 115 mg/dL 40 -200 (Trig/Chol/HDL) [place] [address] [phone] Cholesterol 168 mg/dL Less Than 200 39 High Density Lipoprotein 40 mg/dL 40-60 40 Cholesterol/HDL Ratio 4.20 AVERAGE 1-4.44 Low Density Lipoprotein 105 mg/dL High Less Than 100 41 Vitamin D, 25 11/04/2010 [facility] 25-Hydroxy Vitamin <4.0 ng/ mL () [place] [address] D2 [phone] 25-Hydroxy Vitamin D3 18 ng/mL () 25-Hydroxy Vitamin D Total 18 ng/mL Low 25-80 42 Xray 04/30/2010 [facility] Spine, Lumbosacral, 2 Or 3 Views DJD JER WRIGHT [place], [place] [id number] [phone] Foot, Complete, Right No acute disease Surgical 04/02/2010 [facility] Surgical [address] [place] [address] Pathology <SEE NOTE> [phone] Order 04/02/2010 [facility] Colonoscopy Normal, f/u [place] [address] [phone] Xray 10/30/2009 [facility] Chest, 2 Views Normal JER [place] [id number] [phone] Comp 10/23/2009 [facility] Sodium 135 mmol/L 135 [place] [address] -14 Panel [phone] Potassium 3.8 mmol/L 3.5-5.0 Chloride 103 mmol/L 101-111 Co2 (Carbon Dioxide) 28.0 mmol/L 22-32 Anion Gap 4.0 mmol/L 2-11 44 Glucose 100 mg/dL 70-100 45 BUN 8 mg/dL 6-24 Creatinine 0.70 mg/dL 0.50-1.40 One Over Creatinine 1.40 BUN/Creatinine Ratio 11.4 8-20 Calcium 9.0 mg/dL 8.1-9.9 46 Total Protein 7.2 GM/DL 6.2-8.1 Albumin 3.9 GM/DL 3.2-5.2 Globulin 3.3 GM/DL 2-4 Albumin/Globulin Ratio 1.2 1-3 Bilirubin Total 0.7 mg/dL 0.4-1.5 47 Alkaline Phosphatase 49 U/L 30-110 Alt (SGPT) 11 U/L Low 14-54 Ast (Sgot) 20 U/L 12-42 eGFR Non- 90.1 > 60 eGFR 109.0 > 60 48 CBC No Diff 10/23/2009 [facility] White Blood Count 5.7 CUMM 4.8-10.8 [place] [address] [phone] Red Cell Count 4.59 CUMM 4.2-5.4 Hemoglobin 13.9 g/dL 12.0-16.0 Hematocrit 41 % 35-47 Mean Corpuscular Volume 89 um3 79-97 Mean Corpuscular Hemoglob 30 pg 27-31 Mean Corpuscular HGB Cone 34 g/dL 32-36 Platelet Count 193 CUMM 150-450 Lipid Profile 10/23/2009 [facility] Triglyceride 77 mg/dL 40- 200 (Trig/Chol/HDL) [place] [address] [phone] Cholesterol 175 mg/dL Less Than 200 49 High Density Lipoprotein 37 mg/dL Low 40-60 50 Cholesterol/HDL Ratio 4.73 AVERAGE High 1-4.44 Low Density Lipoprotein 123 mg/dL High Less Than 130 51 Order 06/21/2009 [facility] 24 Hour Holter Asymptomatic/ [place] [address] Monitor [phone] Order 06/20/2009 [facility] [place] [address] [phone] Laboratory test 06/20/2009 [facility] Magnesium 2.4 mg/dL 1.7 - [place] [address] 2.6 [phone] TSH 1.13 MIU/ML 0.34-5.60 Basic Metabolic Panel 06/20/2009 [facility] Sodium 136 mmol/L 135-145 [place] [address] [phone] Potassium 3.9 mmol/L 3.5-5.0 Chloride 103 mmol/L 101-111 Co2 (Carbon Dioxide) 29.0 mmol/L 22-32 Anion Gap 4.0 mmol/L 2-11 52 Glucose 85 mg/dL 70-100 53 BUN 13 mg/dL 6-24 Creatinine 0.70 mg/dL 0.50-1.40 One Over Creatinine 1.40 BUN/Creatinine Ratio 18.6 8-20 Calcium 8.9 mg/dL 8.1-9.9 54 eGFR Non- 90.1 > 60 eGFR 109.0 > 60 55 Lipid Profile 08/14/2008 [facility] Triglyceride 77 mg/dL 40- 200 (Trig/Chol/HDL) [place], [place] [address] [phone] Cholesterol 180 mg/dL Less Than 200 56 High Density Lipoprotein 38 mg/dL Low 40-60 57 Cholesterol/HDL Ratio 4.74 AVERAGE High 1-4.44 Low Density Lipoprotein 127 mg/dL High Less Than 130 58 Comp Metabolic Panel 08/14/2008 [facility] Sodium 137 mmol/L 135-145 [place], [place] [address] [phone] Potassium 4.0 mmol/L 3.5-5.0 Chloride 104 mmol/L 101-111 Co2 (Carbon Dioxide) 28.0 mmol/L 22-32 Anion Gap 5.0 mmol/L 2-11 59 Glucose 97 mg/dL 70-100 60 BUN 11 mg/dL 6-24 Creatinine 0.70 mg/dL 0.50-1.40 One Over Creatinine 1.40 BUN/Creatinine Ratio 15.7 8-20 Calcium 9.3 mg/dL 8.1-9.9 61 Total Protein 7.4 GM/DL 6.2-8.1 Albumin 3.9 GM/DL 3.2-5.2 Globulin 3.5 GM/DL 2-4 Albumin/Globulin Ratio 1.1 1-3 Bilirubin Total 0.8 mg/dL 0.4-1.5 Alkaline Phosphatase 58 U/L 30-110 Alt (SGPT) 18 U/L 14-54 Ast (Sgot) 23 U/L 12-42 Hemogram 08/14/2008 [facility] White Blood Count 6.5 CUMM 4.8 -10.8 [place] [address] [phone] Red Cell Count 4.58 CUMM 4.2-5.4 Hemoglobin 13.6 g/dL 12.0-16.0 Hematocrit 40 % 35-47 Mean Corpuscular Volume 88 um3 79-97 Mean Corpuscular Hemoglob 30 pg 27-31 Mean Corpuscular HGB Cone 34 g/dL 32-36 Platelet Count 225 CUMM 150-450 Urinalysis W/Microscopic 11/02/2007 [facility] [place] [address] [phone] Appearance-Urine CLEAR Specific [place]-Ur 1.002 Low 1.010-1.030 Esterase-Urine NEGATIVE Negative Nitrite NEGATIVE Negative Ynkedrlhsgzd-Mn-PLC NEGATIVE Negative Protein-Urine NEGATIVE Negative PH-Urine 7.0 5-9 Blood-Urine NEGATIVE Negative Ketones-Urine NEGATIVE Negative Bilirubin-Ur NEGATIVE Negative Glucose-Urine NEGATIVE Negative WBC-Urine 0-2 0-5 RBC-Urine 0-2 0-2 Epith Cells-Ur RARE Bacteria-Urine TRACE Urinalysis W/Microscopic 07/19/2007 [facility] U[address] [place] [address] [phone] Appearance-Urine CLEAR Bilirubin-Ur NEGATIVE Negative Blood-Urine TRACE Abnormal Negative Epith Cells-Ur FEW Esterase-Urine NEGATIVE Negative Glucose-Urine NEGATIVE Negative Ketones-Urine NEGATIVE Negative Nitrite NEGATIVE Negative PH-Urine 7.0 5-9 Protein-Urine NEGATIVE Negative RBC-Urine 2-3 0-2 Oocowqzumrhk-Kb-BMY NEGATIVE Negative Specific [place]-Ur 1.011 1.010-1.030 WBC-Urine RARE 0-5 Urinalysis 07/19/2007 [facility] [place] [address] [phone] Appearance-Urine CLEAR Bilirubin-Ur NEGATIVE Negative Blood-Urine TRACE Abnormal Negative Esterase-Urine NEGATIVE Negative Glucose-Urine NEGATIVE Negative Ketones-Urine NEGATIVE Negative Nitrite NEGATIVE Negative PH-Urine 7.0 5-9 Protein-Urine NEGATIVE Negative Yvtrtngmylew-Vr-ENZ NEGATIVE Negative Specific [place]-Ur 1.011 1.010-1.030 Laboratory test 07/19/2007 [facility] TSH 2.33 MIU/ML 0.34- 5.60 finding [place], [place] 3541084 [phone] Lipid Profile 07/19/2007 [facility] Cholestero 4.81 AVERAGE High 1-4.44 (Trig/Chol/HDL) [place] [address] l/HDL [phone] Ratio Cholesterol 178 mg/dL Less Than 200 63 Triglyceride 114 mg/dL 40-200 High Density Lipoprotein 37 mg/dL Low 40-60 64 Low Density Lipoprotein 118 mg/dL High Less Than 100 65 Hemogram 07/19/2007 [facility] White Blood Count 5.6 CUMM 4.8 -10.8 [place] [address] [phone] Hematocrit 39 % 35-47 Hemoglobin 13.3 g/dL 12.0-16.0 Mean Corpuscular HGB Cone 34 g/dL 32-36 Mean Corpuscular Hemoglob 29 pg 27-31 Mean Corpuscular Volume 85 um3 79-97 Platelet Count 237 CUMM 150-450 Red Cell Count 4.57 CUMM 4.2-5.4 Comp Metabolic Panel 07/19/2007 [facility] One Over Creatinine 1.42 [place] [address] [phone] Anion Gap 3.0 mmol/L 2-11 66 Albumin/Globulin Ratio 0.9 Low 1-3 Albumin 3.5 GM/DL 3.2-5.2 Alkaline Phosphatase 55 U/L 30-110 Alt (SGPT) 16 U/L 14-54 Ast (Sgot) 19 U/L 12-42 BUN 9 mg/dL 6-24 Calcium 8.9 mg/dL 8.7-10.2 Chloride 107 mmol/L 101-111 Co2 (Carbon Dioxide) 29.0 mmol/L 22-32 Globulin 3.9 GM/DL 2-4 Glucose 89 mg/dL 70-105 Potassium 4.1 mmol/L 3.5-5.0 Sodium 139 mmol/L 135-145 Bilirubin Total 0.9 mg/dL 0.4-1.5 Total Protein 7.4 GM/DL 6.2-8.1 BUN/Creatinine Ratio 12.9 8-20 Creatinine 0.7 mg/dL 0.5-1.4 Order 07/14/2007 [facility] [place] [address] [phone] 1 Because ethnic data is not always readily available, this report includes an eGFR for both -Americans and non- Americans. The National Kidney Disease Education Program (NKDEP) does not endorse the use of the MDRD equation for patients that are not between the ages of 18 and 70, are , have extremes of body size, muscle mass, or nutritional status, or are non- or non-. According to the National Kidney Foundation, irrespective of diagnosis, the stage of the disease is based on the level of kidney function: Stage Description GFR(mL/min/1.73 m(2)) 1 Kidney damage with normal or decreased GFR 90 2 Kidney damage with mild decrease in GFR 60-89 3 Moderate decrease in GFR 30-59 4 Severe decrease in GFR 15-29 5 Kidney failure <15 (or dialysis) 2 Desirable: <150 Borderline High: 150-199 High: 200-499 Very High: >500 3 Desirable: <200 Borderline High: 200-239 High: >239 4 Low: <40 Desirable: 40-60 High: >60 5 Desirable: <100 Near Optimal: 100-129 Borderline High: 130-159 High: 160-189 Very High: >189 6 SEE RESULT BELOW Name: ANKITA KUNZ : [address]: Amy Fonseca MD Acct: [id number] Unit: [id number] AGE: 72 Location: [facility] Re07/27/17 SEX: F Status: REG REF SPEC: [id number] BRIDGET: 07/27/17 [facility] DR: Amy Fonseca MD REQ: [id number] RECD: 07/28/17 STATUS: MELLISSA MORENO DR: Meet Hines MD _ ORDERED: THIN PREP, HPV/Thin Prep COMMENTS: [id number] Negative for Intraepithelial lesion or Malignancy A. Ectocervical/Endocervical Specimen Adequacy: Satisfactory of evaluation Transformation zone component identified Patient Information: HPV: High risk HPV RNA testing regardless of pap results. Actual Specimen Date: 07/27/17 Last Menstrual Date: 05/25/99 Date of Last Specimen: 04/07/16 ?: N Post Menopausal?: Y Hysterectomy?: N Date Time Test Result Flag (u) Normal Range 07/27/17 1303 @ HPV RNA Negative Negative @ @ The high-risk HPV types detected by the assay include: 16, @ 18, 31, 33, 35, 39, 45, 51, 52, 56, 58, 59, 66, and 68. Signed (signature on file) VAHE Kapadia(ASCP) 07/30 1017 This Pap test was evaluated with the assistance of the [employer] MedicalPrep Test Imaging System. Due to cytologic findings at the block bolter mule operator microscope, comprehensive manual rescreening by a Heat Reader may be required. The Pap Smear is a screening test designed to aid in the detection of premalignant and malignant conditions of the uterine cervix. It is not a diagnostic procedure and should not be used as the sole means of detecting cervical cancer. Both false- positive and false- negative reports do occur. Depending on your risk status, a Pap smear should be obtained and evaluated every 1-3 years. END OF REPORT DEPARTMENT OF PATHOLOGY, [address] [place] [address] Alberto Ott M.D. Director [facility] # [id number] 7 Because ethnic data is not always readily available, this report includes an eGFR for both -Americans and non- Americans. The National Kidney Disease Education Program (NKDEP) does not endorse the use of the MDRD equation for patients that are not between the ages of 18 and 70, are , have extremes of body size, muscle mass, or nutritional status, or are non- or non-. According to the National Kidney Foundation, irrespective of diagnosis, the stage of the disease is based on the level of kidney function: Stage Description GFR(mL/min/1.73 m(2)) 1 Kidney damage with normal or decreased GFR 90 2 Kidney damage with mild decrease in GFR 60-89 3 Moderate decrease in GFR 30-59 4 Severe decrease in GFR 15-29 5 Kidney failure <15 (or dialysis) 8 Please note the change in INR reference range effective 17. 9 Because ethnic data is not always readily available, this report includes an eGFR for both -Americans and non- Americans. The National Kidney Disease Education Program (NKDEP) does not endorse the use of the MDRD equation for patients that are not between the ages of 18 and 70, are , have extremes of body size, muscle mass, or nutritional status, or are non- or non-. According to the National Kidney Foundation, irrespective of diagnosis, the stage of the disease is based on the level of kidney function: Stage Description GFR(mL/min/1.73 m(2)) 1 Kidney damage with normal or decreased GFR 90 2 Kidney damage with mild decrease in GFR 60-89 3 Moderate decrease in GFR 30-59 4 Severe decrease in GFR 15-29 5 Kidney failure <15 (or dialysis) 10 Because ethnic data is not always readily available, this report includes an eGFR for both -Americans and non- Americans. The National Kidney Disease Education Program (NKDEP) does not endorse the use of the MDRD equation for patients that are not between the ages of 18 and 70, are , have extremes of body size, muscle mass, or nutritional status, or are non- or non-. According to the National Kidney Foundation, irrespective of diagnosis, the stage of the disease is based on the level of kidney function: Stage Description GFR(mL/min/1.73 m(2)) 1 Kidney damage with normal or decreased GFR 90 2 Kidney damage with mild decrease in GFR 60-89 3 Moderate decrease in GFR 30-59 4 Severe decrease in GFR 15-29 5 Kidney failure <15 (or dialysis) 11 SEE RESULT BELOW Name: ANKITA KUNZ: [address]: Meet Hines MD Acct: [id number] Unit: [id number] AGE: 71 Location: LAB Re04/04/16 SEX: F Status: REG REF SPEC: [id number] BRIDGET: 04/04/16-[address]: Meet Hines MD REQ: [id number] RECD: 04/04/16 STATUS: RES _ SOURCE: STOOL SPDESC: ORDERED: Stool Culture, Giardia Antigen Procedure Result Reported Site Stool Culture PENDING Stool Specimen Description PENDING Shiga Toxin 1 2 PENDING Giardia Antigen Screen Final 04/04/16- 1159 ML Organism 1 Negative Giardia Giardia antigen testing performed by enzyme immunoassay. If patient is immunocompromised or has traveled to or is from a developing country, a full ova and parasite exam with microscopic (OPMIC) is recommended. All samples will be held one month in case full ova and parasite testing is requested. Contact the Microbiology Department at [phone]. * ML - [facility] ([facility]) . END OF REPORT * ML=Testing performed at Main Lab DEPARTMENT OF PATHOLOGY, [address] [place] [address] Alberto Ott M.D. Director [facility] # [id number] 12 One negative specimen does not rule out the possibility of a parasitic infection. REFERENCE RANGE: NOT DETECTED The Entamoeba histolytica antigen EIA test detects only the antigen of the pathogenic E. histolytica; the non-pathogenic E. dispar is not detected. Test Performed by: [employer], [address] [address] [place] [address] 13 SEE RESULT BELOW Name: ANKITA KUNZ : [address]: Meet Hines MD Acct: [id number] Unit: [id number] AGE: 71 Location: LAB Re04/04/16 SEX: F Status: REG REF SPEC: [id number] BRIDGET: 04/04/16 [facility] DR: Meet Hines MD REQ: [id number] RECD: 04/04/16 STATUS: COMP _ SOURCE: STOOL SPDESC: ORDERED: Stool Culture, Giardia Antigen Procedure Result Reported Site Stool Culture Final 04/06/16- 1103 ML Result No enteric pathogens isolated Testing for Salmonella, Shigella, Aeromonas, Plesiomonas, Yersinia and Campylobacter are included in a Stool Culture. Vibrio spp not routinely tested for in a stool culture. If testing is desired, please request specifically when placing test order. Sensitivities not routinely performed on stool isolates, as antibiotics may prolong the carriage rate of bacteria. Please contact the microbiology lab if sensitivities are required. Stool Specimen Description Final 04/04/16- 1356 ML Stool Color Brown Stool Form Formed Stool Consistency Soft Shiga Toxin 1 2 Final 04/07/16- 1040 ML Organism 1 Negative Shiga Toxin 1 2 Immunochromatographic Assay CONTINUED ON NEXT PAGE * ML=Testing performed at Main Lab DEPARTMENT OF PATHOLOGY, [address] [place] [address] Alberto Ott M.D. Director [facility] # [id number] Patient: ANKITA KUNZ [id number] (Continued) Specimen: [id number] Collected: 04/04/16 Received: 04/04/16 (Continued) Procedure Result Reported Site Shiga Toxin 1 2 Final (continued) 04/07/16- 1040 Giardia Antigen Screen Final 04/04/16- 1159 ML Organism 1 Negative Giardia Giardia antigen testing performed by enzyme immunoassay. If patient is immunocompromised or has traveled to or is from a developing country, a full ova and parasite exam with microscopic (OPMIC) is recommended. All samples will be held one month in case full ova and parasite testing is requested. Contact the Microbiology Department at [phone]. * ML - MAIN LAB ([facility]) . END OF REPORT * ML=Testing performed at Main Lab DEPARTMENT OF PATHOLOGY, [address] [place] [address] Alberto Ott M.D. Director [facility] # [id number] 14 PT IS FASTING 15 PT IS FASTING 16 Desirable <150 Borderline high 150-199 High 200-499 Very High >500 17 Desirable <200 Borderline high 200-239 High >239 18 Low <40 Desirable: 40-60 High: >60 19 Desirable: <100 mg/dL Near Optimal: 100-129 mg/dL Borderline High: 130-159 mg/dL High: 160-189 mg/dL Very High: >189 mg/dL 20 Because ethnic data is not always readily available, this report includes an eGFR for both -Americans and non- Americans. The National Kidney Disease Education Program (NKDEP) does not endorse the use of the MDRD equation for patients that are not between the ages of 18 and 70, are , have extremes of body size, muscle mass, or nutritional status, or are non- or non-. According to the National Kidney Foundation, irrespective of diagnosis, the stage of the disease is based on the level of kidney function: Stage Description GFR(mL/min/1.73 m(2)) 1 Kidney damage with normal or decreased GFR 90 2 Kidney damage with mild decrease in GFR 60-89 3 Moderate decrease in GFR 30-59 4 Severe decrease in GFR 15-29 5 Kidney failure <15 (or dialysis) 21 SEE RESULT BELOW Name: ANKITA KUNZ : [address]: Johnathan Larsen MD Acct: [id number] Unit: [id number] AGE: 70 Location: [facility] Re04/10/15 SEX: F Status: REG REF SPEC: [id number] BRIDGET: 04/10/15-[address]: Johnathan Larsen MD REQ: [id number] RECD: 04/10/15-120 STATUS: MELLISSA MORENO DR: Meet Hines MD _ ORDERED: LEVEL IV/2 FINAL DIAGNOSIS 1. Small bowel, duodenum, biopsy: -- Small bowel mucosa with normal villous architecture and no significant pathologic abnormality. -- No infectious agents or viral changes identified. 2. Colon, 40 cm, biopsy: -- Hyperplastic polyp. CLINICAL HISTORY No additional information provided POST-OPERATIVE DIAGNOSIS Esophagus - normal; stomach - erosions, biopsied; duodenum - biopsy for celiac. Colonoscopy to cecum - polyp at 40 cm. biopsied GROSS DESCRIPTION 1. The specimen is received in formalin labeled, Duodenum Biopsies, and consists of a 0.5 x 0.4 x 0.1 cm aggregate of dominguez-pink irregular soft tissue fragments, which is submitted entirely in one cassette. 2. The specimen is received in formalin labeled, Biopsy Colon Polyp at 40 cm, and consists of a 0.5 x 0.2 x 0.2 cm dominguez-pink irregular soft tissue fragment, which is submitted entirely in one cassette. Signed (signature on file) Alberto Ott MD [id number] END OF REPORT * ML=Testing performed at Main Lab DEPARTMENT OF PATHOLOGY, [address] [place] [address] Alberto Ott M.D. Director [facility] # [id number] 22 Because ethnic data is not always readily available, this report includes an eGFR for both -Americans and non- Americans. The National Kidney Disease Education Program (NKDEP) does not endorse the use of the MDRD equation for patients that are not between the ages of 18 and 70, are , have extremes of body size, muscle mass, or nutritional status, or are non- or non-. According to the National Kidney Foundation, irrespective of diagnosis, the stage of the disease is based on the level of kidney function: Stage Description GFR(mL/min/1.73 m(2)) 1 Kidney damage with normal or decreased GFR 90 2 Kidney damage with mild decrease in GFR 60-89 3 Moderate decrease in GFR 30-59 4 Severe decrease in GFR 15-29 5 Kidney failure <15 (or dialysis) 23 REFERENCE VALUE 25-HYDROXY D TOTAL (D2+D3) Optimum levels in the healthy population are 20-50, patients with bone disease may benefit from higher levels within this range. Test Performed by: [address] [address] Fitness Technician: Jose Calvert M.D. 24 -- REFERENCE VALUE -- 25-HYDROXY D TOTAL (D2+D3) Optimum levels in the healthy population are 20-50, patients with bone disease may benefit from higher levels within this range. Test Performed by: [facility] - [address] [address] Fitness Technician: Andrew Gautam III, M.D. 25 Because ethnic data is not always readily available, this report includes an eGFR for both -Americans and non- Americans. The National Kidney Disease Education Program (NKDEP) does not endorse the use of the MDRD equation for patients that are not between the ages of 18 and 70, are , have extremes of body size, muscle mass, or nutritional status, or are non- or non-. According to the National Kidney Foundation, irrespective of diagnosis, the stage of the disease is based on the level of kidney function: Stage Description GFR(mL/min/1.73 m(2)) 1 Kidney damage with normal or decreased GFR 90 2 Kidney damage with mild decrease in GFR 60-89 3 Moderate decrease in GFR 30-59 4 Severe decrease in GFR 15-29 5 Kidney failure <15 (or dialysis) 26 RUN DATE: 06/01/13 [facility] LAB LIVE PAGE 1 RUN TIME: [address] [place] [address] Specimen Inquiry Name: ANKITA KUNZ : [address]: Meet Hines MD Acct: [id number] Unit: [id number] AGE: 68 Location: [facility] Re05/30/13 SEX: F Status: REG REF SPEC: [id number] BRIDGET: 05/30/13-1206 [facility] DR: Meet Hines MD REQ: [id number] RECD: 05/30/130630 STATUS: SOUT _ ORDERED: LEVEL IV FINAL DIAGNOSIS Skin, site unspecified, shave excision: A. Inflamed verrucoid actinic keratosis. B. No overt invasion identified. C. Lesion appears to be excised in the plane sectioning. CLINICAL HISTORY Increase in growth and itching PRE-OPERATIVE DIAGNOSIS Rule out squamous cell cancer of skin GROSS DESCRIPTION The specimen is received in formalin labeled Ankita Kunz, Tissue, and consists of a 0.7 x 0.5 cm. dominguez-white skin shave with a eccentric 0.5 cm. circular granular yellow area. The specimen is inked, bisected, and submitted entirely, one cassette. Signed (signature on file) Alberto Ott MD 1432 END OF REPORT * ML=Testing performed at Main Lab DEPARTMENT OF PATHOLOGY, [address] [place] [address] Alberto Ott M.D. Director [facility] Permit #[id number] 27 Because ethnic data is not always readily available, this report includes an eGFR for both -Americans and non- Americans. The National Kidney Disease Education Program (NKDEP) does not endorse the use of the MDRD equation for patients that are not between the ages of 18 and 70, are , have extremes of body size, muscle mass, or nutritional status, or are non- or non-. According to the National Kidney Foundation, irrespective of diagnosis, the stage of the disease is based on the level of kidney function: Stage Description GFR(mL/min/1.73 m(2)) 1 Kidney damage with normal or decreased GFR 90 2 Kidney damage with mild decrease in GFR 60-89 3 Moderate decrease in GFR 30-59 4 Severe decrease in GFR 15-29 5 Kidney failure <15 (or dialysis) 28 -- REFERENCE VALUE -- 25-HYDROXY D TOTAL (D2+D3) Optimum levels in the normal population are 25-80 Test Performed by: [facility] [address] [address] Fitness Technician: Andrew Gautam III, M.D. 29 HDL Interpretation: Undesirable: High Risk: Less than 40 mg/dL Desirable: Low Risk: Greater than 60 mg/dL 30 LDL Interpretation: Low Risk Optimal Level: LDL Less than 100 mg/dL Near or Above Optimal: LDL 100-129 mg/dL Borderline High Risk: LDL 130-159 mg/dL High Risk: LDL 160-189 mg/dL Very High Risk: LDL Greater than 189 mg/dL 31 HDL Interpretation: Undesirable: High Risk: Less than 40 MG/DL Desirable: Low Risk: Greater than 60 MG/DL 32 LDL Interpretation: Low Risk Optimal Level: LDL Less than 100 MG/DL Near or Above Optimal: LDL 100-129 MG/DL Borderline High Risk: LDL 130-159 MG/DL High Risk: LDL 160-189 MG/DL Very High Risk: LDL Greater than 189 MG/DL 33 Anion gap measurement may be of limited value in the presence of any alkalosis, especially in a combined acid base disorder. . 34 Because ethnic data is not always readily available, this report includes an eGFR for both -Americans and non- Americans. The National Kidney Disease Education Program (NKDEP) does not endorse the use of the MDRD equation for patients that are not between the ages of 18 and 70, are , have extremes of body size, muscle mass, or nutritional status, or are non- or non-. According to the National Kidney Foundation, irrespective of diagnosis, the stage of the disease is based on the level of kidney function: Stage Description GFR(mL/min/1.73 m(2)) 1 Kidney damage with normal or decreased GFR 90 2 Kidney damage with mild decrease in GFR 60-89 3 Moderate decrease in GFR 30-59 4 Severe decrease in GFR 15-29 5 Kidney failure <15 (or dialysis) 35 -- REFERENCE VALUE -- 25-HYDROXY D TOTAL (D2+D3) Optimum levels in the normal population are 25-80 Test Performed by: [address] [address] Fitness Technician: Andrew Gautam III, M.D. 36 -- REFERENCE VALUE -- 25-HYDROXY D TOTAL (D2+D3) Optimum levels in the normal population are 25-80 Test Performed by: [facility] Med and Pathology [address] [place] [address] Fitness Technician: Andrew Gautam III, M.D. 37 Anion gap measurement may be of limited value in the presence of any alkalosis, especially in a combined acid base disorder. . 38 Because ethnic data is not always readily available, this report includes an eGFR for both -Americans and non- Americans. The National Kidney Disease Education Program (NKDEP) does not endorse the use of the MDRD equation for patients that are not between the ages of 18 and 70, are , have extremes of body size, muscle mass, or nutritional status, or are non- or non-. According to the National Kidney Foundation, irrespective of diagnosis, the stage of the disease is based on the level of kidney function: Stage Description GFR(mL/min/1.73 m(2)) 1 Kidney damage with normal or decreased GFR 90 2 Kidney damage with mild decrease in GFR 60-89 3 Moderate decrease in GFR 30-59 4 Severe decrease in GFR 15-29 5 Kidney failure <15 (or dialysis) 39 CHOLESTEROL INTERPRETATION: Desirable: Less than 200 MG/DL Borderline-High Risk: 200-239 MG/DL High-Risk: 240 MG/DL and over 40 HDL INTERPRETATION: Undesirable: High Risk: Less than 40 MG/DL Desirable: Low Risk: Greater than 60 MG/DL 41 LDL INTERPRETATION: Low Risk Optimal Level: LDL Less than 100 MG/DL Near or Above Optimal: LDL 100-129 MG/DL Borderline High Risk: LDL 130-159 MG/DL High Risk: LDL 160-189 MG/DL Very High Risk: LDL Greater than 189 MG/DL 42 Interpretation: 10-24 (mild to moderate deficiency) -- REFERENCE VALUE -- 25-HYDROXY D TOTAL (D2+D3) Optimum levels in the normal population are 25-80 Test Performed by: [facility] [address] [place] [address] Fitness Technician: Andrew Gautam III, M.D. 43 ---- RUN DATE: 04/04/10 [facility] NMI LIVE PAGE 1 RUN TIME: 1348 Specimen Inquiry RUN USER: INTERFACE -- Name: ANKITA KUNZ Vic Zavala#: [id number] Status: REG REF Re04/02/10 Age/Sex: 65/F Unit#: [id number] Location: [address] [place] [address].O.B. : [birth year] -- Specimen: [id number] SOUT Spec Date: 04/02/[address]: Johnathan ronquillo MD Spec Type: SURGICAL P Received: 04/03/10 Copies to: Meet alaniz MD SPECIMEN BIOPSY COLON POLYP AT 15 CM. HISTORY POST-OP DIAGNOSIS: To cecum; at 15 cm. - 2 mm. biopsy CLINICAL INFORMATION: Screening GROSS DESCRIPTION The specimen is received in formalin labelled Ankita Kunz, Colon Polyp at 15 cm., and consists of a dominguez, soft tissue fragment measuring 0.4 x 0.3 x 0.2 cm. Submitted entirely, one cassette. DIAGNOSIS Colon, 15 cm., biopsy: Hyperplastic polyp. Signed Electronically by: ALBERTO OTT MD 04/04/10 9803 -- -- DEPARTMENT OF PATHOLOGY, [address] [place] [address] [facility] Permit #[id number] Alberto Ott M.D. Director Nubia Humphries M.D. Cogeneration Operator Dir armando -- 44 Anion gap measurement may be of limited value in the presence of any alkalosis, especially in a combined acid base disorder. . 45 Note change in reference range as of 01/13/08. The change was based on recommendations from the [place] [employer]. 46 Please note change in reference range effective 07 . 47 A metabolite of Naproxen, O-desmethylnaproxen, has been shown to interfere with the [place] method for measuring total bilirubin. Samples from patients who have taken Naproxen have shown spurious elevation in total bilirubin levels. 48 Because ethnic data is not always readily available, this report includes an eGFR for both -Americans and non- Americans. The National Kidney Disease Education Program (NKDEP) does not endorse the use of the MDRD equation for patients that are not between the ages of 18 and 70, are , have extremes of body size, muscle mass, or nutritional status, or are non- or non-. According to the National Kidney Foundation, irrespective of diagnosis, the stage of the disease is based on the level of kidney function: Stage Description GFR(mL/min/1.73 m(2)) 1 Kidney damage with normal or decreased GFR 90 2 Kidney damage with mild decrease in GFR 60-89 3 Moderate decrease in GFR 30-59 4 Severe decrease in GFR 15-29 5 Kidney failure <15 (or dialysis) 49 CHOLESTEROL INTERPRETATION: Desirable: Less than 200 MG/DL Borderline-High Risk: 200-239 MG/DL High-Risk: 240 MG/DL and over 50 HDL INTERPRETATION: Undesirable: High Risk: Less than 40 MG/DL Desirable: Low Risk: Greater than 60 MG/DL 51 LDL INTERPRETATION: Low Risk Optimal Level: LDL Less than 100 MG/DL Near or Above Optimal: LDL 100-129 MG/DL Borderline High Risk: LDL 130-159 MG/DL High Risk: LDL 160-189 MG/DL Very High Risk: LDL Greater than 189 MG/DL 52 Anion gap measurement may be of limited value in the presence of any alkalosis, especially in a combined acid base disorder. . 53 Note change in reference range as of 01/13/08. The change was based on recommendations from the [place] [employer]. 54 Please note change in reference range effective 07 . 55 Because ethnic data is not always readily available, this report includes an eGFR for both -Americans and non- Americans. The National Kidney Disease Education Program (NKDEP) does not endorse the use of the MDRD equation for patients that are not between the ages of 18 and 70, are , have extremes of body size, muscle mass, or nutritional status, or are non- or non-. According to the National Kidney Foundation, irrespective of diagnosis, the stage of the disease is based on the level of kidney function: Stage Description GFR(mL/min/1.73 m(2)) 1 Kidney damage with normal or decreased GFR 90 2 Kidney damage with mild decrease in GFR 60-89 3 Moderate decrease in GFR 30-59 4 Severe decrease in GFR 15-29 5 Kidney failure <15 (or dialysis) 56 CHOLESTEROL INTERPRETATION: Desirable: Less than 200 MG/DL Borderline-High Risk: 200-239 MG/DL High-Risk: 240 MG/DL and over 57 HDL INTERPRETATION: Undesirable: High Risk: Less than 40 MG/DL Desirable: Low Risk: Greater than 60 MG/DL 58 LDL INTERPRETATION: Low Risk Optimal Level: LDL Less than 100 MG/DL Near or Above Optimal: LDL 100-129 MG/DL Borderline High Risk: LDL 130-159 MG/DL High Risk: LDL 160-189 MG/DL Very High Risk: LDL Greater than 189 MG/DL 59 Anion gap measurement may be of limited value in the presence of any alkalosis, especially in a combined acid base disorder. . 60 Note change in reference range as of 01/13/08. The change was based on recommendations from the [place] [employer]. 61 Please note change in reference range effective 07 . 62 FASTING 63 Classification: Desirable . 64 Classification: Low . 65 CALCULATED LDL APPROXIMATES THE VALUE OF A DIRECT LDL MEASUREMENT. Classification: Near or above optimal . 66 Anion gap measurement may be of limited value in the presence of any alkalosis, especially in a combined acid base disorder. . Procedures Date Code Description Status 09/04/2017 [id number] Mammogram Completed 04/10/2015 [id number] Colonoscopy Completed 12/28/2014 [id number] Mammogram Completed 07/21/2014 03144 Electrocardiogram Complete Completed 11/10/2013 38836 Debridement Skin & Subcutaneous Tissue Completed 11/10/2013 42256 Debridement Skin & Subcutaneous Tissue Completed 10/27/2013 [id number] Mammogram Completed 05/30/2013 58933 Excise Benign lesion 1.1-2CM Trunk/Arm/Leg Completed 11/17/2012 41688 Electrocardiogram Complete Completed 10/28/2012 [id number] Bone Mineral Density Test Completed 04/21/2012 [id number] Mammogram Completed 11/04/2011 38316 Electrocardiogram Complete Completed 04/09/2010 [id number] Mammogram Completed 04/02/2010 [id number] Colonoscopy Completed 06/21/2009 47731 ECG Monitor/Report W/O Superimposition Scanning Completed 06/20/2009 45762 Electrocardiogram Complete Completed 07/14/2007 42575 Electrocardiogram Complete Completed 10/28/2005 [id number] Bone Mineral Density Test Completed 02/04/2000 [id number] Colonoscopy Completed Encounters Type Date Location Provider Dx Diagnosis Office Visit 07/26/2018 Main Office Meet Hines R05 Cough 12:40p MD Office Visit 06/03/2018 Main Office Meet Hines F33.1 Major depressive 12:40p disorder, recurrent, moderate G47.00 Insomnia, unspecified M65.312 Trigger thumb, left thumb M75.21 Bicipital tendinitis, right shoulder Office Visit 12/24/2017 1:00p Main Office Meet Vizcarra Z00.01 Encounter for MD [facility] general adult medical exam w abnormal findings F33.1 Major depressive disorder, recurrent, moderate M25.552 Pain in left hip M25.562 Pain in left knee Office Visit 09/15/2017 2:20p Main Office Meet Vizcarra B34.9 Viral infection, MD [facility] unspecified Office Visit 07/02/2017 1:00p Main Office Meet Vizcarra F33.1 Major depressive MD [facility] disorder, recurrent, moderate M25.511 Pain in right shoulder Office Visit 12/23/2016 1:00p Main Office Meet Vizcarra Z00.01 Encounter for MD [facility] general adult medical exam w abnormal findings F33.1 Major depressive disorder, recurrent, moderate Office Visit 05/01/2016 1:00p Main Office Meet Vizcarra F33.1 Major depressive MD [place] disorder, recurrent, moderate Office Visit 04/03/2016 10:40a Main Office Meet Vizcarra R19.7 Diarrhea, MD [place] unspecified Office Visit 03/04/2016 3:40p Main Office Meet Vizcarra F33.1 Major depressive MD [place] disorder, recurrent, moderate Office Visit 01/04/2016 10:00a Main Office Meet Vizcarra F33.1 Major depressive MD [place] disorder, recurrent, moderate L81.9 Disorder of pigmentation, unspecified Office Visit 11/12/2015 1:00p Main Office Meet Vizcarra Z00.01 Encounter for MD [facility] general adult medical exam w abnormal findings Office Visit 09/10/2015 2:40p Main Office Meet Vizcarra M54.5 Low back pain MD [facility] M19.041 Primary osteoarthritis, right hand L81.9 Disorder of pigmentation, unspecified Office Visit 02/06/2015 1:40p Main Office Meet Vizcarra T63.461A Toxic effect of MD [facility] venom of wasps, accidental, init M19.041 Primary osteoarthritis, right hand Office Visit 11/08/2014 1:00p Main Office Meet Vizcarra V70.0 Examination General MD [facility] Medical Routine AT [facility] 268.9 Vitamin D Deficiency Unspec 847.2 Sprains & Strains Lumbar 780.52 Insomnia Unspecified Office Visit 10/31/2014 3:40p Main Office Jak Nettles, UPHOLSTERY HANDLER-C 724.3 Sciatica 782.0 Skin Sensation Disturbance 719.46 Pain Joint Lower Leg 720.2 Sacroiliitis Not Elsewhere Classified Office Visit 10/24/2014 11:00a Main Office Jak Nettles, 847.2 Sprains & Strains UPHOLSTERY HANDLER-C Lumbar Office Visit 08/04/2014 11:00a Main Office Jak Nettles, 311 Depressive UPHOLSTERY HANDLER-C Disorder Not Elsewhere Spec 780.52 Insomnia Unspecified 841.8 Sprains & Strains Elbow & Forearm Other Spec Sites Office Visit 07/26/2014 3:40p Main Office Jak Nettles, 841.8 Sprains & Strains UPHOLSTERY HANDLER-C Elbow & Forearm Other Spec Sites 311 Depressive Disorder Not Elsewhere Spec Office Visit 07/21/2014 2:40p Main Office Jak Nettles, V58.69 Medications Long UPHOLSTERY HANDLER-C Term (Current) Use Encounter 841.8 Sprains & Strains Elbow & Forearm Other Spec Sites 785.1 Palpitations Office Visit 03/22/2014 9:00a Main Office Jak Nettles, 787.3 Flatulence UPHOLSTERY HANDLER-C Eructation & Gas Pain 787.5 Bowel Sounds Abnormal Office Visit 11/01/2013 10:00a Main Office Meet Vizcarra V70.0 Examination General MD [facility] Routine [facility] 268.9 Vitamin D Deficiency Unspec Office Visit 07/05/2013 11:00a Main Office Meet Vizcarra 373.32 Dermatitis Eyelid MD [facility] Contact & Allergic Office Visit 06/24/2013 10:00a Main Office Meet Vizcarra 373.32 Dermatitis Eyelid MD [facility] Contact & Allergic 369.70 Vision Low One Eye Impairment Level Not Further Spec Office Visit 04/27/2013 1:00p Main Office Meet Vizcarra 268.9 Vitamin D MD [facility] Deficiency Unspec 780.52 Insomnia Unspecified 530.81 Esophageal Reflux 995.3 Allergy Unspec 724.5 Backache Unspec Office Visit 11/17/2012 9:00a Main Office Meet Hines MD 785.1 Palpitations 311 Depressive Disorder Not Elsewhere Spec 780.52 Insomnia Unspecified Office Visit 08/26/2012 2:20p Main Office Meet Hines, 719.46 Pain Joint Lower MD Leg 724.5 Backache Unspec 311 Depressive Disorder Not Elsewhere Spec Office Visit 04/29/2012 11:00a Main Office Meet Vizcarra 268.9 Emma Hines MD Deficiency Unspec 530.81 Esophageal Reflux 311 Depressive Disorder Not Elsewhere Spec 780.52 Insomnia Unspecified V58.69 Medications Residential (Current) Use Encounter V82.81 Special Screening For Osteoporosis V07.4 HRT Hormone Replacement Therapy Postmenopausal Office Visit 11/04/2011 10:40a Main Office Meet Vizcarra 268.9 Emma Hines MD Deficiency Unspec 311 Depressive Disorder Not Elsewhere Spec 780.52 Insomnia Unspecified 530.81 Esophageal Reflux V58.69 Medications Residential (Current) Use Encounter 724.5 Backache Unspec 238.2 Neoplasm Uncertain Skin 455.3 Hemorrhoids External W/O Complication Office Visit 06/03/2011 11:00a Main Office Meet Vizcarra 268.9 Emma Hines MD Deficiency Unspec 311 Depressive Disorder Not Elsewhere Spec 780.52 Insomnia Unspecified 530.81 Esophageal Reflux Office Visit 03/31/2011 1:40p Main Office Meet Hines 311 Depressive Disorder MD Not Elsewhere Spec 780.52 Insomnia Unspecified 455.3 Hemorrhoids External W/O Complication Office Visit 11/06/2010 2:00p Main Office Meet Vizcarra 268.9 Vitamin D MD [facility] Deficiency Unspec 311 Depressive Disorder Not Elsewhere Spec 780.52 Insomnia Unspecified 477.9 Rhinitis Allergic Cause Unspec 724.5 Backache Unspec Office Visit 05/08/2010 3:00p Main Office Meet Hines, 724.5 Backache Unspec MD 719.47 Pain Joint Ankle & Foot Office Visit 04/30/2010 11:00a Main Office Meet Hines, 724.5 Backache Unspec MD 719.47 Pain Joint Ankle & Foot V03.82 Streptococcus Pneumoniae Vaccination Spec Other 311 Depressive Disorder Not Elsewhere Spec 780.52 Insomnia Unspecified Office Visit 10/30/2009 11:00a Main Office Meet Vizcarra V70.0 Examination General MD [facility] Routine AT [facility] 311 Depressive Disorder Not Elsewhere Spec 477.9 Rhinitis Allergic Cause Unspec 786.2 Cough V76.51 Special Screening For Malignant Neoplasms Colon 374.30 Ptosis Of Eyelid Unspec Office Visit 06/25/2009 2:00p Main Office Meet Hines, 780.2 Syncope & Collapse MD 780.52 Insomnia Unspecified 311 Depressive Disorder Not Elsewhere Spec Office Visit 06/20/2009 2:00p Main Office Meet Hines, 780.2 Syncope & Collapse MD 564.00 Constipation Unspecified 780.52 Insomnia Unspecified 311 Depressive Disorder Not Elsewhere Spec Office Visit 05/15/2009 2:00p Main Office Meet Hines, 311 Depressive Disorder MD Not Elsewhere Spec 780.52 Insomnia Unspecified Office Visit 05/02/2009 3:00p Main Office Meet Hines, 311 Depressive Disorder MD Not Elsewhere Spec 780.52 Insomnia Unspecified Office Visit 08/29/2008 1:20p Main Office Meet Vizcarra V70.0 Examination General MD [facility] Routine [facility] 272.2 Hyperlipidemia Mixed 780.52 Insomnia Unspecified V06.1 Znbztqnsxq-Mqntevd-Zeystbnk Combined (DTaP) Office Visit 06/23/2008 11:20a Main Office Meet Hines MD 727.3 Bursitis Other 311 Depressive Disorder Not Elsewhere Spec Office Visit 05/12/2008 9:40a Main Office Meet Hines MD 727.3 Bursitis Other 311 Depressive Disorder Not Elsewhere Spec 786.50 Pain Chest Unspec Office Visit 07/27/2007 3:00p Main Office Meet Vizcarra 272.2 Hyperlipidemia Mixed MD [facility] 311 Depressive Disorder Not Elsewhere Spec 727.3 Bursitis Other Office Visit 07/14/2007 3:00p Main Office Meet Vizcarra V70.0 Examination General MD [facility] Routine AT [facility] 272.2 Hyperlipidemia Mixed 311 Depressive Disorder Not Elsewhere Spec V81.0 Screening For Ischemic Heart Disease Plan of Treatment Future Appointment(s):10/05/2018 1:00 pm - Meet Hines MD at Main Office
--- OUTSIDE RECORDS SUMMARY | 2018-08-01 16:22 | XMS REPORT | Continuity of Care Document ---
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 Meet Hines MD FACP Primary Care Physician Unavailable Payers Date Identification Numbers Payment Provider Subscriber Effective: 2012 Policy Number: [id number] Medicare [place] Ankita Kunz PayID: [id number] [address] [place] [address] Policy Number: [id number] [facility] Brendasuzi PayID: [id number] [address] [place] [address] Advance Directives Description No Information Available Problems [...] Status 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 Use for 5-7 days and then stop. Aleve 07/26/2014 - Hx Tablets 220mg 2 tabs by 719.46 Jak Terry 08/05/2014 mouth twice a [place], TECHNICAL ACCOUNT EXECUTIVE-C day for elbow joint pain 724.5 841.8 Activated 03/22/2014 - Hx OTC Rx: 2 787.3 Jak Terry Charcoal 11/07/2014 tab by mouth [place], once for TECHNICAL ACCOUNT EXECUTIVE-C stomach and bowel gas, and then per directions on bottle. Kefir 03/22/2014 - Hx Drink Kefir 787.3 Jak D 11/07/2014 or other [facility] cultured milk TECHNICAL ACCOUNT EXECUTIVE-C products at least once daily to promote [...] 311 Jak D 08/04/2014 abs by mouth [place], daily at [facility] bedtime for depression 780.52 Amitriptyline 08/26/2012 - Hx Tablets 10mg 30tabs Take 1 tablet F33.1 Dsouza A HCL 09/25/2012 by mouth MD Flora daily at bedtime for depression Zostavax 04/29/2012 - Hx Solution [id number] 1units 1 injection Dsouza A 08/25/2012 Rec [...] Code Status Date Vaccine Reaction Lot # 24780 Given 01/23/2018 Influenza Vaccine Quadrivalent Preser/Antibiotic [place] Use [address]76 Given 2016 Influenza Virus Split 3 Yrs And Above For Intramuscular Use 43396 Given 03/18/2013 Influenza Virus Split 3 Yrs And Above For Intramuscular Use 90037 Given 05/06/2012 Zoster Shingles Vaccine For Subcutaneous Injection 57683 Given 03/29/2012 Influenza Virus Split 3 Yrs And Above For Intramuscular Use 02467 Given 04/29/2011 Influenza Virus Split 3 Yrs And Above For Intramuscular Use 56554 Given 04/30/2010 Pneumococcal Vaccine 2Yrs Or Older PNEUMO [id number] 06116 Given 03/25/2010 Influenza Virus Split 3 Yrs And Above For Intramuscular Use 34449 Given 08/29/2008 Tdap-Tetanus, Diphtheria TDAP [id number] Toxoids/Acellular Pertussis Vaccine 7+ 85274 Refused 03/31/2011 Influenza Virus Split 3 Yrs And 03/31/11 Pt will get her Above For Intramuscular Use flu shot at a local pharmacy due to cost issues. Vital Signs Date Vital Result Comment 07/26/2018 1:36pm Body Temperature 98.4 F 07/21/2018 1:38pm Body Temperature 98.8 F Heart Rate 78 /min BP Systolic Recheck 115 mmHg BP Diastolic Recheck 65 mmHg 07/21/2018 1:18pm Body Temperature 98.1 F 06/03/2018 [...] H/L Range Note CBC No Diff 12/21/2017 [facility] White Blood 7.9 10^3/uL N 3.5-10.8 [place] [address] Count [phone] Red Blood Count 4.54 10^6/uL N 4.00-5.40 [...] um3 N 7.4-10.4 Comp Metabolic Panel 12/21/2017 [facility] Sodium 138 mmol/L N 135-145 [place] [address] [phone] Potassium 3.8 mmol/L N 3.5-5.0 Chloride 104 [...] Egfr 101.8 >60 1 Lipid Profile 12/21/2017 [facility] Triglycerides 139 mg/dL 2 (Trig/Chol/HDL) [place] [address] [phone] Cholesterol 213 mg/dL 3 HDL Cholesterol 39.6 mg/dL 4 LDL Cholesterol 146 mg/dL 5 Laboratory test 07/27/2017 [facility] Cytology SEE RESULT 6 [place] [address] BELOW [phone] Xray 07/02/2017 [facility] Shoulder, Normal [address] [place] [place] [address] Of 2 V RT [phone] CBC Auto Diff 05/24/2017 [facility] White Blood 6.1 10^3/uL N 3.5-10 [place] [address] Count .8 [phone] Red Blood Count 4.77 10^6/uL N 4.0-5.4 [...] Cells % 0.1 Comp Metabolic Panel 05/24/2017 [facility] Sodium 134 mmol/L N 133-145 [place] [address] [phone] Potassium 3.5 mmol/L N 3.5-5.0 Chloride 101 [...] >60 Egfr 96.8 >60 7 Inr/Protime 05/24/2017 [facility] Inr 1.10 High 0.77-1.02 8 [place], [place] [id number] [phone] Laboratory test 12/18/2016 [facility] Vitamin D 34.1 N 30-50 [place] [address] Total 25(Oh) ng/mL [phone] CBC No Diff 12/18/2016 [facility] White Blood 7.3 N 3.5-10.8 [place] [address] Count 10^3/uL [phone] Red Blood Count 4.70 10^6/uL N 4.0-5.4 [...] um3 N 7.4-10.4 Comp Metabolic Panel 12/18/2016 [facility] Sodium 133 mmol/L N 133-145 [place] [address] [phone] Potassium 4.0 mmol/L N 3.5-5.0 Chloride 101 [...] N >60 9 Basic Metabolic Panel 04/04/2016 [facility] Sodium 135 mmol/L N 133-145 [place] [address] [phone] Potassium 4.1 mmol/L N 3.5-5.0 Chloride 102 mmol/L N 101-111 Co2 Carbon Dioxide 30 mmol/L N 22-32 Anion Gap 3 mmol/L N 2-11 Glucose 95 mg/dL N 70-100 Blood Urea Nitrogen 7 mg/dL N 6-24 Creatinine 0.68 mg/dL N 0.51-0.95 BUN/Creatinine Ratio 10.3 N 8-20 Calcium 9.4 mg/dL N 8.6-10.3 Egfr Non- 85.8 N >60 Egfr 110.3 N >60 10 Laboratory test 04/04/2016 [facility] Giardia SEE RESULT 11 [place] [address] Antigen Screen BELOW [phone] Entamoeba histolytica Antigen NOT DETECTED N 12 Stool Culture SEE RESULT BELOW 13 CBC Auto Diff 04/04/2016 [facility] White Blood 7.6 10^3/uL N 3.5-10.8 [place] [address] Count [phone] Red Blood Count 5.12 10^6/uL N 4.0-5.4 [...] Cells % 0 N Laboratory test 11/07/2015 [facility] Vitamin D 34.0 ng/mL N 30-50 14, 15 [place] [address] Total 25(Oh) [phone] CBC No Diff 11/07/2015 [facility] White Blood 6.3 N 3.5-10.8 [place] [address] Count 10^3/uL [phone] Red Blood Count 4.73 10^6/uL N 4.0-5.4 Hemoglobin 13.7 g/dL N 12.0-16.0 Hematocrit 42 % N 35-47 Mean Corpuscular Volume 88 fL N 80-97 Mean Corpuscular Hemoglobin 29 pg N 27-31 Mean Corpuscular HGB Conc 33 g/dL N 31-36 Red Cell Distribution Width 13 % N 10.5-15 Platelet Count 201 10^3/uL N 150-450 Mean Platelet Volume 11 um3 High 7.4-10.4 Lipid Profile 11/07/2015 [facility] Triglycerides 127 mg/dL N <150 16 (Trig/Chol/HDL) [place] [address] [phone] Cholesterol 173 mg/dL N <200 17 HDL Cholesterol 40.3 mg/dL N >35 18 LDL Cholesterol 107 mg/dL N <160 19 Basic Metabolic Panel 11/07/2015 [facility] Sodium 134 mmol/L N 133-145 [place] [address] [phone] Potassium 3.9 mmol/L N 3.5-5.0 Chloride 102 mmol/L N 101-111 Co2 Carbon Dioxide 28 mmol/L N 22-32 Anion Gap 4 mmol/L N 2-11 Glucose 98 mg/dL N 70-100 Blood Urea Nitrogen 8 mg/dL N 6-24 Creatinine 0.62 mg/dL N 0.51-0.95 BUN/Creatinine Ratio 12.9 N 8-20 Calcium 9.1 mg/dL N 8.6-10.3 Egfr Non- 95.7 N >60 Egfr 123.1 N >60 20 Laboratory test 04/10/2015 [facility] Surgical SEE RESULT 21 [place] [address] Pathology BELOW [phone] Laboratory test 02/06/2015 [facility] Uric Acid 3.0 mg/dL N 2.3-[place] [address] [phone] Laboratory test 10/31/2014 [facility] Vitamin D Total 47.3 ng/ mL N 30-50 [place] [address] 25(Oh) [phone] CBC No Diff 10/31/2014 [facility] White Blood 6.9 10^3/uL N 4.8-10 [place] [address] Count .8 [phone] Red Blood Count 4.71 10^6/uL N 4.0-5.4 [...] um3 N 7.4-10.4 Comp Metabolic Panel 10/31/2014 [facility] Sodium 136 mmol/L N 133-145 [place] [address] [phone] Potassium 3.9 mmol/L N 3.5-5.0 Chloride 103 [...] >60 22 Order 07/21/2014 [facility] [place] [address] [phone] Vitamin D, 25 04/14/2014 [facility] 25-Hydroxy <4.0 ng/[place] [address] Vitamin D2 [phone] 25-Hydroxy Vitamin D3 43 ng/mL N 25-Hydroxy Vitamin D Total 43 ng/mL N 23 Vitamin D, 25 10/24/2013 [facility] 25-Hydroxy Vitamin <4.0 ng/ [place] [address] D2 [phone] 25-Hydroxy Vitamin D3 29 ng/mL 25-Hydroxy Vitamin D Total 29 ng/mL 25-50 24 Basic Metabolic Panel 10/24/2013 [facility] Sodium 135 mmol/L 133-145 [place] [address] [phone] Potassium 3.9 mmol/L 3.7-5.6 Chloride 105 mmol/L 101-111 Co2 Carbon Dioxide 27 mmol/L 22-32 Anion Gap 3 mmol/L 2-11 Glucose 96 mg/dL 70-100 Blood Urea Nitrogen 9 mg/dL 6-24 Creatinine 0.62 mg/dL 0.51-0.95 BUN/Creatinine Ratio 14.5 8-20 Calcium 9.0 mg/dL 8.6-10.3 Egfr Non- 96.3 >60 Egfr 123.9 >60 25 CBC No Diff 10/24/2013 [facility] White Blood 5.5 10^3/uL 4.8 -10.8 [place] [address] Count [phone] Red Blood Count 4.64 10^6/uL 4.0-5.4 Hemoglobin 13.8 g/dL 12.0-16.0 Hematocrit 41 % 35-47 Mean Corpuscular Volume 88 fL 80-97 Mean Corpuscular Hemoglobin 30 pg 27-31 Mean Corpuscular HGB Conc 34 g/dL 31-36 Red Cell Distribution Width 13 % 10.5-15 Platelet Count 206 10^3/uL 150-450 Mean Platelet Volume 10 um3 7.4-10.4 Laboratory test 05/30/2013 [facility] Surgical RUN DATE: [place] [address] Pathology <SEE [phone] NOTE> Order 11/17/2012 [facility] [place] [address] [phone] Xray 10/28/2012 [facility] Dexa Scan, Normal [facility] DR [place] [address] hips, pelvis, [phone] spine) CBC No Diff 10/28/2012 [facility] White Blood 5.5 10^3/uL 4.8 -10 [place] [address] Count .8 [phone] Red Blood Count 4.57 10^6/uL 4.0-5.4 Hemoglobin 14.0 g/dL 12.0-16.0 Hematocrit 41 % 35-47 Mean Corpuscular Volume 89 fL 80-97 Mean Corpuscular Hemoglobin 31 pg 27-31 Mean Corpuscular HGB Conc 34 g/dL 31-36 Red Cell Distribution Width 13 % 10.5-15 Platelet Count 191 10^3/uL 150-450 Mean Platelet Volume 10 um3 7.4-10.4 Basic Metabolic Panel 10/28/2012 [facility] Sodium 139 mmol/L 133-145 [place] [address] [phone] Potassium 4.6 mmol/L 3.5-5.0 Chloride 107 mmol/L 101-111 Co2 Carbon Dioxide 29.0 mmol/L 22-32 Anion Gap 3.0 mmol/L 2-11 Glucose 90 mg/dL 70-100 Blood Urea Nitrogen 7 mg/dL 6-24 Creatinine 0.70 mg/dL 0.50-1.40 BUN/Creatinine Ratio 10.0 8-20 Calcium 9.3 mg/dL 8.1-9.9 Egfr Non- 84.0 >60 Egfr 108.0 >60 27 Vitamin D, 25 10/28/2012 [facility] 25-Hydroxy Vitamin <4.0 ng/ [place] [address] D2 [phone] 25-Hydroxy Vitamin D3 32 ng/mL 25-Hydroxy Vitamin D Total 32 ng/mL 25-80 28 Lipid Profile 10/28/2012 [facility] Triglycerides 78 mg/dL 40 -200 (Trig/Chol/HDL) [place] [address] [phone] Cholesterol 167 mg/dL Less than 200 HDL Cholesterol 39 mg/dL Low 40-60 29 Cholesterol/HDL Ratio 4.3 Average 1-4.44 LDL Cholesterol 112.4 Less Than 160 30 Laboratory test 04/22/2012 [facility] Vitamin D, 30 25 -80 finding 25-Hydroxy Lipid Profile 04/22/2012 [facility] Triglycerides 115 mg/dL 40-200 (Trig/Chol/HDL) [place], [place] [address]16 [phone] Cholesterol 197 mg/dL Less than 200 HDL Cholesterol 39 mg/dL Low 40-60 31 Cholesterol/HDL Ratio 5.1 AVERAGE High 1-4.44 LDL Cholesterol 135.0 mg/dL Less Than 160 32 Order 11/04/2011 [facility] [place] [address] [phone] Basic Metabolic 10/28/2011 [facility] Sodium 135 mmol/L 135- 145 Panel [place], [place] [id number] [phone] Potassium 4.0 mmol/L 3.5-5.0 Chloride 104 mmol/L 101-111 Co2 (Carbon Dioxide) 29.0 mmol/L 22-32 Anion Gap 2.0 mmol/L 2-11 33 Glucose 97 mg/dL 70-100 BUN 13 mg/dL 6-24 Creatinine 0.7 mg/dL 0.50-1.40 One Over Creatinine 1.42 BUN/Creatinine Ratio 18.6 8-20 Calcium 8.9 mg/dL 8.1-9.9 eGFR Non- 84.2 > 60 eGFR 108.3 > 60 34 CBC No Diff 10/28/2011 [facility] White Blood Count 6.4 CUMM 4.8-10.8 [place] [address] [phone] Red Cell Count 4.48 CUMM 4.2-5.4 Hemoglobin 13.6 g/dL 12.0-16.0 Hematocrit 40 % 35-47 Mean Corpuscular Volume 89 um3 79-97 Mean Corpuscular Hemoglob 30 pg 27-31 Mean Corpuscular HGB Cone 34 g/dL 32-36 Redcell Distribution WDTH 13 % 10.5-15 Platelet Count 206 CUMM 150-450 Mean Platelet Volume 10.2 um3 7.4-10.4 Vitamin D, 25 10/27/2011 [facility] 25-Hydroxy Vitamin <4.0 ng/ mL () [place] [address] D2 [phone] 25-Hydroxy Vitamin D3 27 ng/mL () 25-Hydroxy Vitamin D Total 27 ng/mL 25-80 35 Vitamin D, 25 05/26/2011 [facility] 25-Hydroxy Vitamin <4.0 ng/ mL () [place] [address] D2 [phone] 25-Hydroxy Vitamin D3 32 ng/mL () 25-Hydroxy Vitamin D Total 32 ng/mL () 36 CBC No Diff 11/04/2010 [facility] White Blood Count 7.4 CUMM 4.8-10.8 [place], [place] 6[address]92 [phone] Red Cell Count 4.57 CUMM 4.2-5.4 Hemoglobin 13.7 g/dL 12.0-16.0 Hematocrit 42 % 35-47 Mean Corpuscular Volume 91 um3 79-97 Mean Corpuscular Hemoglob 30 pg 27-31 Mean Corpuscular HGB Cone 33 g/dL 32-36 Redcell Distribution WDTH 13 % 10.5-15 Platelet Count 218 CUMM 150-450 Mean Platelet Volume 10.7 um3 High 7.4-10.4 Basic Metabolic Panel 11/04/2010 [facility] Sodium 135 mmol/L 135-145 [place] [address] [phone] Potassium 3.9 mmol/L 3.5-5.0 Chloride 105 mmol/L 101-111 Co2 (Carbon Dioxide) 27.0 mmol/L 22-32 Anion Gap 3.0 mmol/L 2-11 37 Glucose 91 mg/dL 70-100 BUN 11 mg/dL 6-24 Creatinine 0.80 mg/dL 0.50-1.40 One Over Creatinine 1.20 BUN/Creatinine Ratio 13.8 8-20 Calcium 9.0 mg/dL 8.1-9.9 eGFR Non- 72.4 > 60 eGFR 93.2 > 60 38 Lipid Profile 11/04/2010 [facility] Triglyceride 115 mg/dL 40 -200 (Trig/Chol/HDL) [place] [address] [phone] Cholesterol 168 mg/dL Less Than 200 39 High Density Lipoprotein 40 mg/dL 40-60 40 Cholesterol/HDL Ratio 4.20 AVERAGE 1-4.44 Low Density Lipoprotein 105 mg/dL High Less Than 100 41 Vitamin D, 25 11/04/2010 [facility] 25-Hydroxy Vitamin <4.0 ng/ mL () [place] [address] D2 [phone] 25-Hydroxy Vitamin D3 18 ng/mL () 25-Hydroxy Vitamin D Total 18 ng/mL Low 25-80 42 Xray 04/30/2010 [facility] Spine, Lumbosacral, 2 Or 3 Views DJD JER WRIGHT [place], [place] [address]309 [phone] Foot, Complete, Right No acute disease Surgical 04/02/2010 [facility] Surgical 43 [place] [address] Pathology <SEE NOTE> [phone] Order 04/02/2010 [facility] Colonoscopy Normal, f/u 5 [place] [address] [phone] Xray 10/30/2009 [facility] Chest, 2 Views [place] [address] [phone] Comp 10/23/2009 [facility] Sodium 135 mmol/L 135 [place] [address] -14 Panel [phone] Potassium 3.8 mmol/L 3.5-5.0 Chloride 103 [...] > 60 48 CBC No Diff 10/23/2009 [facility] White Blood Count 5.7 CUMM 4.8-10.8 [place], [place] [address]26 [phone] Red Cell Count 4.59 CUMM 4.2-5.4 Hemoglobin 13.9 g/dL 12.0-16.0 Hematocrit 41 % 35-47 Mean Corpuscular Volume 89 um3 79-97 Mean Corpuscular Hemoglob 30 pg 27-31 Mean Corpuscular HGB Cone 34 g/dL 32-36 Platelet Count 193 CUMM 150-450 Lipid Profile 10/23/2009 [facility] Triglyceride 77 mg/dL 40- 200 (Trig/Chol/HDL) [place] [address] [phone] Cholesterol 175 mg/dL Less Than 200 49 High Density Lipoprotein 37 mg/dL Low 40-60 50 Cholesterol/HDL Ratio 4.73 AVERAGE High 1-4.44 Low Density Lipoprotein 123 mg/dL High Less Than 130 51 Order 06/21/2009 [facility] 24 Hour Holter Asymptomatic/ [place] [address] Monitor [phone] Order 06/20/2009 [facility] EKG NSR [place], [place] [address]26762 [phone] Laboratory test 06/20/2009 [facility] Magnesium 2.4 mg/dL 1.7 [place] [address] 2.6 [phone] TSH 1.13 MIU/ML 0.34-5.60 Basic Metabolic Panel 06/20/2009 [facility] Sodium 136 mmol/L 135-145 [place] [address] [phone] Potassium 3.9 mmol/L 3.5-5.0 Chloride 103 mmol/L 101-111 Co2 (Carbon Dioxide) 29.0 mmol/L 22-32 Anion Gap 4.0 mmol/L 2-11 52 Glucose 85 mg/dL 70-100 53 BUN 13 mg/dL 6-24 Creatinine 0.70 mg/dL 0.50-1.40 One Over Creatinine 1.40 BUN/Creatinine Ratio 18.6 8-20 Calcium 8.9 mg/dL 8.1-9.9 54 eGFR Non- 90.1 > 60 eGFR 109.0 > 60 55 Lipid Profile 08/14/2008 [facility] Triglyceride 77 mg/dL 40- 200 (Trig/Chol/HDL) [place], [place] [address]95 [phone] Cholesterol 180 mg/dL Less Than 200 56 High Density Lipoprotein 38 mg/dL Low 40-60 57 Cholesterol/HDL Ratio 4.74 AVERAGE High 1-4.44 Low Density Lipoprotein 127 mg/dL High Less Than 130 58 Comp Metabolic Panel 08/14/2008 [facility] Sodium 137 mmol/L 135-145 [place], [place] [address]179 [phone] Potassium 4.0 mmol/L 3.5-5.0 Chloride 104 mmol/L [...] Ast (Sgot) 23 U/L 12-42 Hemogram 08/14/2008 [facility] White Blood Count 6.5 CUMM 4.8 -10.8 [place], [place] [address]20 [phone] Red Cell Count 4.58 CUMM 4.2-5.4 Hemoglobin 13.6 g/dL 12.0-16.0 Hematocrit 40 % 35-47 Mean Corpuscular Volume 88 um3 79-97 Mean Corpuscular Hemoglob 30 pg 27-31 Mean Corpuscular HGB Cone 34 g/dL 32-36 Platelet Count 225 CUMM 150-450 Urinalysis W/Microscopic 11/02/2007 [facility] Ua Color STRAW [place], [place] [address]94 [phone] Appearance-Urine CLEAR Specific [place]-Ur 1.002 Low 1.010-1.030 Esterase-Urine NEGATIVE Negative Nitrite NEGATIVE Negative Kvgjxdfzcdxl-Bv-EEV NEGATIVE Negative Protein-Urine NEGATIVE Negative PH-Urine 7.0 5-9 Blood-Urine NEGATIVE Negative Ketones-Urine NEGATIVE Negative Bilirubin-Ur NEGATIVE Negative Glucose-Urine NEGATIVE Negative WBC-Urine 0-2 0-5 RBC-Urine 0-2 0-2 Epith Cells-Ur RARE Bacteria-Urine TRACE Urinalysis W/Microscopic 07/19/2007 [facility] Ua [address]AW [address] [place] [address] [phone] Appearance-Urine CLEAR Bilirubin-Ur NEGATIVE Negative Blood-Urine TRACE Abnormal Negative Epith Cells-Ur FEW Esterase-Urine NEGATIVE Negative Glucose-Urine NEGATIVE Negative Ketones-Urine NEGATIVE Negative Nitrite NEGATIVE Negative PH-Urine 7.0 5-9 Protein-Urine NEGATIVE Negative RBC-Urine 2-3 0-2 Qhbqcyerlrzv-Fh-RCO NEGATIVE Negative Specific [place]-Ur 1.011 1.010-1.030 WBC-Urine RARE 0-5 Urinalysis 07/19/2007 [facility] [place] [address] [phone] Appearance-Urine CLEAR Bilirubin-Ur NEGATIVE Negative Blood-Urine TRACE Abnormal Negative Esterase-Urine NEGATIVE Negative Glucose-Urine NEGATIVE Negative Ketones-Urine NEGATIVE Negative Nitrite NEGATIVE Negative PH-Urine 7.0 5-9 Protein-Urine NEGATIVE Negative Qakmjvmzrufb-Gf-CGA NEGATIVE Negative Specific [place]-Ur 1.011 1.010-1.030 Laboratory test 07/19/2007 [facility] TSH 2.33 MIU/ML 0.34- 5.60 finding [place], [place] 7934066 [phone] Lipid Profile 07/19/2007 [facility] Cholestero 4.81 AVERAGE High 1-4.44 (Trig/Chol/HDL) [place] [address] l/HDL [phone] Ratio Cholesterol 178 mg/dL Less Than 200 63 Triglyceride 114 mg/dL 40-200 High Density Lipoprotein 37 mg/dL Low 40-60 64 Low Density Lipoprotein 118 mg/dL High Less Than 100 65 Hemogram 07/19/2007 [facility] White Blood Count 5.6 CUMM 4.8 -10.8 [place] [address] [phone] Hematocrit 39 % 35-47 Hemoglobin 13.3 g/dL 12.0-16.0 Mean Corpuscular HGB Cone 34 g/dL 32-36 Mean Corpuscular Hemoglob 29 pg 27-31 Mean Corpuscular Volume 85 um3 79-97 Platelet Count 237 CUMM 150-450 Red Cell Count 4.57 CUMM 4.2-5.4 Comp Metabolic Panel 07/19/2007 [facility] One Over Creatinine 1.42 [place] [address] [phone] Anion Gap 3.0 mmol/L 2-11 66 Albumin/Globulin [...] mg/dL 0.5-1.4 Order 07/14/2007 [facility] [place] [address] [phone] 1 Because ethnic data is not always [...] [address]: Amy Fonseca MD Acct: [id number] Unit: [id number] AGE: 72 Location: [facility] Re07/27/17 SEX: F Status: REG REF SPEC: [id number] BRIDGET: 07/27/17 [facility] [address]: Amy Fonseca MD REQ: [id number] RECD: 07/28/17 STATUS: MELLISSA MORENO DR: Meet Hines MD _ ORDERED: THIN PREP, HPV/Thin Prep COMMENTS: [id number] Negative for Intraepithelial lesion or Malignancy A. Ectocervical/Endocervical Specimen Adequacy: Satisfactory of evaluation Transformation zone component identified Patient Information: HPV: High risk HPV RNA testing regardless of pap results. Actual Specimen Date: 07/27/17 Last Menstrual Date: 05/25/99 Date of Last Specimen: 04/07/16 ?: N Post Menopausal?: Y Hysterectomy?: N Date Time Test Result Flag (u) Normal Range 07/27/17 1629 @ HPV RNA Negative Negative @ @ The high-risk HPV types detected by the assay include: 16, @ 18, 31, 33, 35, 39, 45, 51, 52, 56, 58, 59, 66, and 68. Signed (signature on file) [place] VA[facility] Brannon(ASCP) 07/30 1017 This Pap test was evaluated with the assistance of the BISONPrep Test Imaging System. Due to cytologic findings at the travel cota microscope, comprehensive manual rescreening by a Custodial Engineer may be required. The Pap Smear is [...] years. END OF REPORT DEPARTMENT OF PATHOLOGY, [address] [place] [address] Alberto Ott M.D. Director [facility] # [id number] 7 Because ethnic data is not always [...] dialysis) 11 SEE RESULT BELOW Name: ANKITA KUNZ : [address]: Meet Hines MD Acct: [id number] Unit: [id number] AGE: 71 Location: LAB Re04/04/16 SEX: F Status: REG REF SPEC: [id number] BRIDGET: 04/04/16-[address]: Meet Hines MD REQ: [id number] RECD: 04/04/16 STATUS: RES _ SOURCE: STOOL [...] is requested. Contact the Microbiology Department at [phone]. * ML - MAIN LAB ([facility]) . END OF REPORT * ML=Testing performed at Main Lab DEPARTMENT OF PATHOLOGY, [address] [place] [address] Alberto Ott M.D. Director [facility] # [id number] 12 One negative specimen does not rule out the possibility of a parasitic infection. REFERENCE RANGE: NOT DETECTED The Entamoeba histolytica antigen EIA test detects only the antigen of the pathogenic E. histolytica; the non-pathogenic E. dispar is not detected. Test Performed by: [employer] [address] [place] [address] 13 SEE RESULT BELOW Name: ANKITA KUNZ : [address]: Meet Hines MD Acct: [id number] Unit: [id number] AGE: 71 Location: LAB Re04/04/16 SEX: F Status: REG REF SPEC: [id number] BRIDGET: 04/04/16-1053 [facility] [address]: Meet Hines MD REQ: [id number] RECD: 04/04/16 STATUS: COMP _ SOURCE: STOOL [...] performed at Main Lab DEPARTMENT OF PATHOLOGY, [address] [place] [address] Alberto Ott M.D. Director [facility] # [id number] Patient: ANKITA KUNZ Vic [id number] (Continued) Specimen: [id number] Collected: 04/04/16 Received: 04/04/16 (Continued) Procedure Result [...] is requested. Contact the Microbiology Department at [phone]. * ML - MAIN LAB ([facility]) . END OF REPORT * ML=Testing performed at Main Lab DEPARTMENT OF PATHOLOGY, [address] [place] [address] Alberto Ott M.D. Director [facility] # [id number] 14 PT IS FASTING 15 PT IS [...] [address]: Johnathan Larsen MD Acct: [id number] Unit: [id number] AGE: 70 Location: [facility] Re04/10/15 SEX: F Status: REG REF SPEC: [id number] BRIDGET: 04/10/15-[address]: Johnathan Larsen MD REQ: [id number] RECD: 04/10/15120 STATUS: MELLISSA MORENO DR: Meet Hines MD [...] Signed (signature on file) Alberto Ott MD 1530 END OF REPORT * ML=Testing performed at Main Lab DEPARTMENT OF PATHOLOGY, [address] [place] [address] Alberto Ott M.D. Director [facility] # [id number] 22 Because ethnic data is not always [...] levels within this range. Test Performed by: [address] [address] [employer] Researcher: Jose Calvert M.D. 24 -- REFERENCE VALUE -- 25-HYDROXY D TOTAL (D2+D3) Optimum levels in the healthy population are 20-50, patients with bone disease may benefit from higher levels within this range. Test Performed by: [address] [address] [employer] Researcher: Andrew Gautam III, M.D. 25 Because ethnic [...] <15 (or dialysis) 26 RUN DATE: 06/01/13 [facility] LAB LIVE PAGE 1 RUN TIME: [address] [place] [id number] Specimen Inquiry Name: ANKITA KUNZ : [address]: Meet Hines MD Acct: [id number] Unit: [id number] AGE: 68 Location: [facility] Re05/30/13 SEX: F Status: REG REF SPEC: [id number] BRIDGET: 05/30/13-1206 [facility] [address]: Meet Hines MD REQ: [id number] RECD: 05/30/132145 STATUS: SOUT _ ORDERED: LEVEL IV FINAL DIAGNOSIS Skin, site unspecified, shave excision: A. Inflamed verrucoid actinic keratosis. B. No overt invasion identified. C. Lesion appears to be excised in the plane sectioning. CLINICAL HISTORY Increase in growth and itching PRE-OPERATIVE DIAGNOSIS Rule out squamous cell cancer of skin GROSS DESCRIPTION The specimen is received in formalin labeled Ankita Kunz Tissue, and consists of a 0.7 x 0.5 cm. dominguez-white skin shave with a eccentric 0.5 cm. circular granular yellow area. The specimen is inked, bisected, and submitted entirely, one cassette. Signed (signature on file) Alberto Ott MD 1432 END OF REPORT * ML=Testing performed at Main Lab DEPARTMENT OF PATHOLOGY, [address] [place] [address] Alberto Ott M.D. Director [facility] Permit #[id number] 27 Because ethnic data is not always [...] normal population are 25-80 Test Performed by: [place] [address] Swine Genetics Researcher: Andrew Gautam III, M.D. 29 HDL Interpretation: [...] normal population are 25-80 Test Performed by: [place] [address] Swine Genetics Researcher: Andrew Gautam III, M.D. 36 -- REFERENCE VALUE -- 25-HYDROXY D TOTAL (D2+D3) Optimum levels in the normal population are 25-80 Test Performed by: [facility] Dpt of Lab Med and Pathology [address] [place] [address] Swine Genetics Researcher: Andrew Gautam III, M.D. 37 Anion gap [...] normal population are 25-80 Test Performed by: [facility] Dpt of Lab Med and Pathology [address] [place] [address] Swine Genetics Researcher: Andrew Gautam III, M.D. 43 ---- RUN DATE: 04/04/10 [facility] NMI LIVE PAGE 1 RUN TIME: 1348 Specimen Inquiry RUN USER: INTERFACE -- [id number] Status: REG REF Re04/02/10 Age/Sex: 65/F Unit#: [id number] Location: [facility] : [birth year] -- Specimen: [id number] SOUT Spec Date: 04/02/[address]: Johnathan ronquillo MD Spec Type: SURGICAL [...] Signed Electronically by: ALBERTO OTT MD 04/04/10 1347 -- -- DEPARTMENT OF PATHOLOGY, [address] [place] [address] [facility] Permit #[id number] Alberto Ott M.D. Director Nubia Humphries M.D. Technical Clerk Dir armando -- 44 Anion gap measurement may be of limited value in the presence of any alkalosis, especially in a combined acid base disorder. . 45 Note change in reference range as of 01/13/08. The change was based on recommendations from the [place] [employer]. 46 Please note change in reference range effective 07 . 47 A metabolite of Naproxen, O-desmethylnaproxen, has been shown to interfere with the [place] method for measuring total bilirubin. Samples from [...] change was based on recommendations from the [place] [employer]. 54 Please note change in [...] change was based on recommendations from the [place] [employer]. 61 Please note change in [...] . Procedures Date Code Description Status 09/04/2017 [id number] Mammogram Completed 04/10/2015 [id number] Colonoscopy Completed 12/28/2014 [id number] Mammogram Completed 07/21/2014 93604 Electrocardiogram Complete Completed 11/10/2013 80914 Debridement Skin & Subcutaneous Tissue Completed 11/10/2013 82738 Debridement Skin & Subcutaneous Tissue Completed 10/27/2013 [id number] Mammogram Completed 05/30/2013 28465 Excise Benign lesion 1.1-2CM Trunk/Arm/Leg Completed 11/17/2012 15089 Electrocardiogram Complete Completed 10/28/2012 605859196 Bone Mineral Density Test Completed 04/21/2012 18541976 Mammogram Completed 11/04/2011 28170 Electrocardiogram Complete Completed 04/09/2010 [id number] Mammogram Completed 04/02/2010 13661612 Colonoscopy Completed 06/21/2009 98056 ECG Monitor/Report W/O Superimposition Scanning Completed 06/20/2009 46144 Electrocardiogram Complete Completed 07/14/2007 18043 Electrocardiogram Complete Completed 10/28/2005 409000961 Bone Mineral Density Test Completed 02/04/2000 79902399 Colonoscopy Completed Encounters Type Date Location Provider Dx Diagnosis Office Visit 07/26/2018 Main Office Meet Hines R05 Cough 12:40p MD Office Visit 07/21/2018 Main Office Meet Hines B34.9 Viral infection, 1:20p unspecified H69.93 Unspecified Eustachian tube disorder, bilateral Office Visit 06/03/2018 12:40p Main Office Meet Vizcarra F33.1 Major depressive MD Flora disorder, recurrent, moderate G47.00 Insomnia, unspecified M65.312 [...] Office Meet Vizcarra F33.1 Major depressive MD Floar disorder, recurrent, moderate Office Visit 04/03/2016 10:40a [...] Visit 10/31/2014 3:40p Main Office Jak Nettles, TECHNICAL ACCOUNT EXECUTIVE-C 724.3 Sciatica 782.0 Skin Sensation Disturbance 719.46 Pain Joint Lower Leg 720.2 Sacroiliitis Not Elsewhere Classified Office Visit 10/24/2014 11:00a Main Office Jak Nettles, 847.2 Sprains & Strains TECHNICAL ACCOUNT EXECUTIVE-C Lumbar Office Visit 08/04/2014 11:00a Main Office Jak Nettles, 311 Depressive TECHNICAL ACCOUNT EXECUTIVE-C Disorder Not Elsewhere Spec 780.52 Insomnia Unspecified 841.8 Sprains & Strains Elbow & Forearm Other Spec Sites Office Visit 07/26/2014 3:40p Main Office Jak Nettles, 841.8 Sprains & Strains TECHNICAL ACCOUNT EXECUTIVE-C Elbow & Forearm Other Spec Sites 311 Depressive Disorder Not Elsewhere Spec Office Visit 07/21/2014 2:40p Main Office Jak Nettles, V58.69 Medications Long TECHNICAL ACCOUNT EXECUTIVE-C Term (Current) Use Encounter 841.8 Sprains & Strains Elbow & Forearm Other Spec Sites 785.1 Palpitations Office Visit 03/22/2014 9:00a Main Office Jak Peraltadrake, 787.3 Flatulence TECHNICAL ACCOUNT EXECUTIVE-C Eructation & Gas Pain 787.5 Bowel Sounds [...] 1:00p Main Office Meet Vizcarra 268.9 Vitamin Harrison Hines MD Deficiency Unspec 780.52 Insomnia Unspecified 530.81 Esophageal [...] Elsewhere Spec 780.52 Insomnia Unspecified V58.69 Medications Behavior Clinician (Current) Use Encounter V82.81 Special Screening For Osteoporosis V07.4 HRT Hormone Replacement Therapy Postmenopausal Office Visit 11/04/2011 10:40a Main Office Meet Vizcarra 268.9 Emma Hines MD Deficiency Unspec 311 Depressive Disorder Not Elsewhere Spec 780.52 Insomnia Unspecified 530.81 Esophageal Reflux V58.69 Medications Jail (Current) Use Encounter 724.5 Backache Unspec 238.2 Neoplasm Uncertain Skin 455.3 Hemorrhoids External W/O Complication Office Visit 06/03/2011 11:00a Main Office Meet Vizcarra 268.9 Vitamin D [...] Office Visit 05/08/2010 3:00p Main Office Meet Hines 724.5 Backache Unspec MD 719.47 Pain Joint Ankle & Foot Office Visit 04/30/2010 11:00a Main Office Meet Hines 724.5 Backache Unspec MD 719.47 Pain Joint [...] Office Visit 06/20/2009 2:00p Main Office Meet Hines 780.2 Syncope & Collapse MD 564.00 Constipation Unspecified 780.52 Insomnia Unspecified 311 Depressive Disorder Not Elsewhere Spec Office Visit 05/15/2009 2:00p Main Office Meet Hines 311 Depressive Disorder MD Not Elsewhere Spec 780.52 Insomnia Unspecified Office Visit 05/02/2009 3:00p Main Office Meet Hines 311 Depressive Disorder MD Not Elsewhere Spec 780.52 Insomnia Unspecified Office Visit 08/29/2008 1:20p Main Office Meet Vizcarra V70.0 Examination General MD Flora [facility] Rout[facility] 272.2 Hyperlipidemia Mixed 780.52 Insomnia Unspecified V06.1 Djiimdcxqw-Mhtjafb-Dlydlonv Combined (DTaP) Office Visit 06/23/2008 11:20a Main [...] pm - Meet Hines MD at Main Bmnagm0207/26/2018 - Meet Hines MDR05 CoughComments:Resolving viral infection.No clinical impression of pneumonia.
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
[2018-08-01 16:39] VITALS: BP 134/76
== END 2018-08-01 17:45 | disposition home health service (06) ==
LOC: UCEAST 16:13
DX: R06.00 Dyspnea, unspecified (principal); J90 Pleural effusion, not elsewhere classified; R05 Cough; R19.7 Diarrhea, unspecified; R53.83 Other fatigue; Z88.8 Allergy status to other drugs, medicaments and biological substances; Z91.040 Latex allergy status
CPT/HCPCS: 71046; 99212; G0463

== ENCOUNTER 2018-08-01 18:05 | Inpatient (IN) | payer MEDICARE, BC ==
[2018-08-01 18:55] LABS: ABS Basophils 0.1 10^3/ul (0-0.2); ABS Eosinophils 0.2 10^3/ul (0-0.6); ABS Lymphocytes 1.6 10^3/ul (1.0-4.8); ABS Monocytes 0.8 10^3/ul (0-0.8); ABS Nucleated RBC 0 10^3/ul; Eosinophil % 1.6 %; Hematocrit 38 % (35-47); Hemoglobin 12.4 g/dl (12.0-16.0); Lymphocyte % 14.9 %; Mean Corpuscular HGB Conc 33 g/dl (31-36); Mean Corpuscular Hemoglobin 29 pg (27-31); Mean Corpuscular Volume 87 fL (80-97); Mean Platelet Volume 8.9 fL (7.4-10.4); Nucleated Red Blood Cells % 0; Platelet Count 346 10^3/ul (150-450); Red Blood Count 4.33 10^6/ul (4.00-5.40); Red Cell Distribution Width 14 % (10.5-15); White Blood Count 10.7 10^3/ul (3.5-10.8)
[2018-08-01 19:04] LABS: Activated Partial Thrombo Time 29.9 seconds (26.0-36.3); INR 1.07 (0.77-1.02)
[2018-08-01 19:12] LABS: Albumin 3.5 g/dL (3.2-5.2); C Reactive Protein 10.99 mg/L (<8.01); Calcium 8.6 mg/dL (8.6-10.3); EGFR African American 126.5 (>60); EGFR Non-African American 104.6 (>60); Globulin 3.4 g/dL (2-4); Potassium 3.7 mmol/L (3.5-5.0); Total Bilirubin 0.2 mg/dL (0.2-1.0); Total Protein 6.9 g/dL (6.4-8.9)
[2018-08-01 19:17] LABS: CKMB ng/mL 3.2 ng/mL (0.6-6.3)
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
[2018-08-01] MEDS ORDERED: Iohexol 350* (CONTRAST) 500 ML MDV IV ONE (19:54)
[2018-08-01 20:22] LABS: Urine Appearance Cloudy; Urine Bilirubin Negative (Negative); Urine Blood Negative (Negative); Urine Color Yellow; Urine Glucose Negative (Negative); Urine Ketones Trace (Negative); Urine Nitrite Negative (Negative); Urine Protein Negative (Negative); Urine Specific Gravity 1.011 (1.010-1.030); Urine Urobilinogen Negative (Negative)
[2018-08-01 20:39] LABS: Influenza A Molecular NEGATIVE (Negative); Influenza B Molecular NEGATIVE (Negative)
[2018-08-01] MEDS ORDERED: Furosemide IV* 10 MG/ML VIAL (40 MG) IV ONE (21:55)
[2018-08-01] MEDS ORDERED: Ondansetron INJ* 2 MG/ML VIAL IV PRN (22:26)
[2018-08-01] MEDS ORDERED: Cyclobenzaprine TAB* 10 MG PO PRN (22:28)
[2018-08-01] MEDS ORDERED: Diazepam TAB(*) 5 MG PO PRN (22:28)
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
[2018-08-02 07:06] LABS: ABS Basophils 0.1 10^3/ul (0-0.2); ABS Eosinophils 0.3 10^3/ul (0-0.6); ABS Lymphocytes 1.6 10^3/ul (1.0-4.8); ABS Monocytes 0.8 10^3/ul (0-0.8); ABS Neutrophils 7.1 10^3/ul (1.5-7.7); ABS Nucleated RBC 0 10^3/ul; Eosinophil % 2.7 %; Hematocrit 37 % (35-47); Hemoglobin 12.3 g/dl (12.0-16.0); Lymphocyte % 16.5 %; Mean Corpuscular HGB Conc 33 g/dl (31-36); Mean Corpuscular Hemoglobin 28 pg (27-31); Mean Corpuscular Volume 86 fL (80-97); Nucleated Red Blood Cells % 0; Platelet Count 330 10^3/ul (150-450); Red Blood Count 4.34 10^6/ul (4.00-5.40); Red Cell Distribution Width 14 % (10.5-15); White Blood Count 9.9 10^3/ul (3.5-10.8)
[2018-08-02 07:24] LABS: Activated Partial Thrombo Time 30.3 seconds (26.0-36.3); BUN/Creatinine Ratio 12.5 (8-20); Calcium 8.5 mg/dL (8.6-10.3); EGFR African American 129.1 (>60); EGFR Non-African American 106.7 (>60); INR 1.13 (0.77-1.02); Potassium 3.3 mmol/L (3.5-5.0)
[2018-08-02] MEDS: Furosemide IV* 10 MG/ML 2 ML VIAL (20 MG) IV SLOW PU SCH ×2 (09:43→14:58)
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
[2018-08-02 14:16] LABS: Body Fluid Source Pleural Fluid
[2018-08-02] MEDS: Potassium Chlor TAB* 20 MEQ TAB.ER PO SCH ×4 (14:56→23:51)
[2018-08-02] MEDS: Magnesium Oxide TAB* 400 MG PO SCH (14:57)
[2018-08-02] MEDS: Sertraline* 100 MG TAB PO SCH (14:59)
[2018-08-02 15:53] LABS: Body Fluid Mono 10 %; Body Fluid Other Cells 44
[2018-08-02] MEDS: NS 0.9% 1000 ML** 1,000 ML IV SCH (18:44)
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
[2018-08-02] MEDS: Famotidine TAB* 20 MG PO PRN (22:24)
[2018-08-02] MEDS: Melatonin 3 MG TAB PO PRN (22:24)
[2018-08-02] MEDS: traZODone TAB* 50 MG TAB PO SCH (22:25)
[2018-08-02] MEDS ORDERED: Potassium Chlor TAB* 20 MEQ TAB.ER PO ONE (22:30)
--- NOTE | 2018-08-02 23:12 | PRO ---
THORACENTESIS REPORT: DATE OF PROCEDURE: 08/02/18 - ROOM #422 PROCEDURE PERFORMED: Ultrasound-guided thoracentesis. PREPROCEDURAL DIAGNOSIS: Large right pleural effusion. POSTPROCEDURAL DIAGNOSIS: Bloody right pleural effusion. ANESTHESIA: Local anesthesia with 1% lidocaine 5 mL. DESCRIPTION OF PROCEDURE: Informed consent was obtained from the patient prior to the procedure after all the risks and benefits were thoroughly explained. Strict aseptic precautions and all barrier techniques were utilized. Appropriate time-out was performed and agreed on by attending staff prior to the procedure. CareFusion 8-Liberian thoracentesis catheter was utilized at bedside. Area was sterilized with chlorhexidine. Sterile drape was placed. After ultrasound localization, lidocaine was injected into the pleural space taking precautions. A #11-scalpel blade was used to make a stab incision. CareFusion 8-Liberian thoracentesis catheter was then inserted under manual suction taking precautions. Catheter was left in place and needle was removed. 2 L of dark-red bloody fluid was aspirated under manual suction. The patient tolerated the procedure well. The patient reported feeling better after the procedure. Specimen was sent to the labs for further testing. A postprocedural chest x-ray was ordered and is pending at the time of dictation. [id number]/[facility] #: [id number] [facility] HEALTH SERVICESHarrison
[2018-08-02] MEDS: Acetaminophen TAB* 325 MG PO PRN ×2 (23:50)
[2018-08-03] MEDS: NS 0.9% 1000 ML** 1,000 ML IV SCH (06:24)
[2018-08-03 07:58] LABS: Hematocrit 34 % (35-47); Hemoglobin 11.5 g/dl (12.0-16.0); Mean Corpuscular HGB Conc 34 g/dl (31-36); Mean Corpuscular Hemoglobin 29 pg (27-31); Mean Corpuscular Volume 86 fL (80-97); Mean Platelet Volume 8.7 fL (7.4-10.4); Platelet Count 284 10^3/ul (150-450); Red Blood Count 3.97 10^6/ul (4.00-5.40); Red Cell Distribution Width 14 % (10.5-15); White Blood Count 9.4 10^3/ul (3.5-10.8)
[2018-08-03 08:19] LABS: BUN/Creatinine Ratio 14.8 (8-20); Calcium 7.9 mg/dL (8.6-10.3); EGFR African American 134.7 (>60); EGFR Non-African American 111.3 (>60); Potassium 3.9 mmol/L (3.5-5.0)
[2018-08-03] MEDS: Furosemide IV* 10 MG/ML 2 ML VIAL (20 MG) IV SLOW PU SCH (09:28)
[2018-08-03] MEDS: Sertraline* 100 MG TAB PO SCH (09:28)
[2018-08-03] MEDS: Magnesium Oxide TAB* 400 MG PO SCH (09:29)
--- NOTE | 2018-08-03 15:12 | PN ---
Progress Note - Progress Note Date of Service: 08/03/18 - Pulm f/u note Note: Pt seen and examined at bedside. Pt reports soreness at site of thoracentesis. Had shoulder pain last night that resolved. No significant cough. Active Medications Generic Name Dose Route Start Last Admin Trade Name Freq PRN Reason Stop Dose Admin Acetaminophen 650 mg 08/01/18 22:26 08/02/18 23:50 Tylenol Tab* PO 650 mg Q6H PRN Administration FEVER/PAIN Cyclobenzaprine HCl 5 mg 08/01/18 22:28 Flexeril Tab* PO TID PRN SPASMS Diazepam 5 mg 08/01/18 22:28 Valium Tab(*) PO TID PRN SPASMS - BACK Famotidine 20 mg 08/01/18 22:28 08/02/18 22:24 Pepcid Tab* PO 20 mg BID PRN Administration GERD Furosemide 20 mg 08/03/18 08:00 08/03/18 09:28 Lasix Iv* IV SLOW PU 20 mg 0800 MAHSA Administration Sodium Chloride 1,000 mls @ 100 mls/hr 08/02/18 17:45 08/03/18 06:24 Ns 0.9% 1000 Ml IV 08/04/18 03:44 100 mls/hr PER RATE MAHSA Administration Magnesium Oxide 400 mg 08/02/18 09:00 08/03/18 09:29 Magox 400 Tab* PO 400 mg DAILY MAHSA Administration Melatonin 3 mg 08/02/18 21:00 08/02/18 22:24 Melatonin PO 3 mg BEDTIME PRN Administration INSOMNIA Ondansetron HCl 4 mg 08/01/18 22:26 Zofran Inj* IV Q6H PRN NAUSEA Sertraline HCl 100 mg 08/02/18 09:00 08/03/18 09:28 Zoloft* PO 100 mg DAILY MAHSA Administration Trazodone HCl 50 mg 08/02/18 22:00 08/02/18 22:25 Desyrel Tab* PO 50 mg BEDTIME MAHSA Administration Vital Signs Temp Pulse Resp BP Pulse Ox 97.3 F 75 18 106/53 96 08/03/18 07:49 08/03/18 07:49 08/03/18 07:49 08/03/18 07:49 08/03/18 07:49 O/E: Pt in NAD HEENT: PERRLA, no JVD Lungs: Decreased air entry on right side starting from mid lung CVS: S1, S2+, regular Abd: Soft, BS+ Ext: No edema Neuro: Alert, awake, no focal deficits Skin: No rash Laboratory Results - last 24 hr 08/02/18 08/03/18 08/03/18 13:00 07:49 07:49 WBC 9.4 RBC 3.97 L Hgb 11.5 L Hct 34 L MCV 86 MCH 29 MCHC 34 RDW 14 Plt Count 284 MPV 8.7 Sodium 135 Potassium 3.9 Chloride 106 Carbon Dioxide 27 Anion Gap 2 BUN 8 Creatinine 0.54 Est GFR ( Amer) 134.7 Est GFR (Non-Af Amer) 111.3 BUN/Creatinine Ratio 14.8 Glucose 115 H Calcium 7.9 L Fluid Volume 20 Fluid Color Red Fluid Appearance Bloody Fluid WBC 128 Fluid RBC 511550 Fluid Tot Cell Count 20 Fluid Neutrophils 30 Fluid Lymphocytes 60 Fluid Monocytes 10 Fluid Other Cells 44 Fluid Cell Count Rvw By I/R: 73 y o f with h/o anxiety, GERD a/w SOB, found to have large Rt effusion s/ p thoracentesis with removal of 2L of bloody fluid Cytology pending, atypical cells noted on thin smear Pt still with significant amount of fluid left after thoracentesis Will remove if symptomatic Awaiting final pathology report If positive for malignancy, will need oncology consultation for treatment recommendations Pain management OOB to chair Can d/c resp isolation
--- NOTE | 2018-08-03 17:35 | PN ---
Subjective Date of Service: 08/03/18 Interval History: Pt continues to have SOB, but is ambulating and resting with 1L O2 without too much difficulty; she does admit to feeling SOB at the end of walking. Pt c/o R arm and lower rib pain when she reaches across the bed to pull herself up. This is the only movement that causes pain in the chest. She also c/o R hip pain, which she attributes to bed rest/lack of movement over the last couple denies. Pt continues to have dry cough. Denies fever, abd pain, weight loss. Objective Active Medications: Acetaminophen (Tylenol Tab*) 650 mg PO Q6H PRN Cyclobenzaprine HCl (Flexeril Tab*) 5 mg PO TID PRN Diazepam (Valium Tab(*)) 5 mg PO TID PRN Famotidine (Pepcid Tab*) 20 mg PO BID PRN Furosemide (Lasix Iv*) 20 mg IV SLOW PU 0800 MAHSA Sodium Chloride (Ns 0.9% 1000 Ml) 1,000 mls @ 100 mls/hr IV PER RATE MAHSA Magnesium Oxide (Magox 400 Tab*) 400 mg PO DAILY MAHSA Melatonin (Melatonin) 3 mg PO BEDTIME PRN Ondansetron HCl (Zofran Inj*) 4 mg IV Q6H PRN Sertraline HCl (Zoloft*) 100 mg PO DAILY MAHSA Trazodone HCl (Desyrel Tab*) 50 mg PO BEDTIME MAHSA Vital Signs: Temp Pulse Resp BP Pulse Ox 98.2 F 92 18 114/62 96 08/03/18 16:53 08/03/18 16:53 08/03/18 16:53 08/03/18 16:53 08/03/18 16:53 Oxygen Devices in Use Now: Nasal Cannula Appearance: Pt is sitting in chair. She is in no acute distress and appears well. Eyes: No Scleral Icterus, PERRLA Ears/Nose/Mouth/Throat: NL Teeth, Lips, Gums, Clear Oropharnyx, Mucous Membranes Moist Neck: NL Appearance and Movements; NL JVP, Trachea Midline Respiratory: Symmetrical Chest Expansion and Respiratory Effort - L lung CTA; R lung with decreased breath sounds in lower 2/3 lung Cardiovascular: NL Sounds; No Murmurs; No JVD - Nontender to palpation, RRR, No Edema Abdominal: NL Sounds; No Tenderness; No Distention, No Hepatosplenomegaly Extremities: No Edema Neurological: Alert and Oriented x 3 Result Diagrams: 08/03/18 07:49 08/03/18 07:49 Additional Lab and Data: Lab Results 08/01/18 08/01/18 08/01/18 Range/Units 18:45 18:45 18:45 WBC 10.7 (3.5-10.8) 10^3/ul RBC 4.33 (4.00-5.40) 10^6/ul Hgb 12.4 (12.0-16.0) g/dl Hct 38 (35-47) % MCV 87 (80-97) fL MCH 29 (27-31) pg MCHC 33 (31-36) g/dl RDW 14 (10.5-15) % Plt Count 346 (150-450) 10^3/ul MPV 8.9 (7.4-10.4) fL Neut % (Auto) 75.4 % Lymph % (Auto) 14.9 % [place] % (Auto) 7.4 % Eos % (Auto) 1.6 % Baso % (Auto) 0.7 % Absolute Neuts (auto) 8.0 H (1.5-7.7) 10^3/ul Absolute Lymphs (auto) 1.6 (1.0-4.8) 10^3/ul Absolute Monos (auto) 0.8 (0-0.8) 10^3/ul Absolute Eos (auto) 0.2 (0-0.6) 10^3/ul Absolute Basos (auto) 0.1 (0-0.2) 10^3/ul Absolute Nucleated RBC 0 10^3/ul Nucleated RBC % 0 INR (Anticoag Therapy) 1.07 H (0.77-1.02) APTT 29.9 (26.0-36.3) seconds Sodium 137 (135-145) mmol/L Potassium 3.7 (3.5-5.0) mmol/L Chloride 105 (101-111) mmol/L Carbon Dioxide 27 (22-32) mmol/L Anion Gap 5 (2-11) mmol/L BUN 8 (6-24) mg/dL Creatinine 0.57 (0.51-0.95) mg/dL Est GFR ( Amer) 126.5 (>60) Est GFR (Non-Af Amer) 104.6 (>60) BUN/Creatinine Ratio 14.0 (8-20) Glucose 90 (70-100) mg/dL Lactic Acid (0.5-2.0) mmol/L Calcium 8.6 (8.6-10.3) mg/dL Total Bilirubin 0.20 (0.2-1.0) mg/dL AST 16 (13-39) U/L ALT 12 (7-52) U/L Alkaline Phosphatase 78 (34-104) U/L Total Creatine Kinase 76 (10-223) U/L CK-MB (CK-2) 3.2 (0.6-6.3) ng/mL Troponin I 0.00 (<0.04) ng/mL C-Reactive Protein 10.99 H (<8.01) mg/L B-Natriuretic Peptide (<=100) pg/mL Total Protein 6.9 (6.4-8.9) g/dL Albumin 3.5 (3.2-5.2) g/dL Globulin 3.4 (2-4) g/dL Albumin/Globulin Ratio 1.0 (1-3) 08/01/18 08/01/18 Range/Units 18:45 18:45 WBC (3.5-10.8) 10^3/ul RBC (4.00-5.40) 10^6/ul Hgb (12.0-16.0) g/dl Hct (35-47) % MCV (80-97) fL MCH (27-31) pg MCHC (31-36) g/dl RDW (10.5-15) % Plt Count (150-450) 10^3/ul MPV (7.4-10.4) fL Neut % (Auto) % Lymph % (Auto) % [place] % (Auto) % Eos % (Auto) % Baso % (Auto) % Absolute Neuts (auto) (1.5-7.7) 10^3/ul Absolute Lymphs (auto) (1.0-4.8) 10^3/ul Absolute Monos (auto) (0-0.8) 10^3/ul Absolute Eos (auto) (0-0.6) 10^3/ul Absolute Basos (auto) (0-0.2) 10^3/ul Absolute Nucleated RBC 10^3/ul Nucleated RBC % INR (Anticoag Therapy) (0.77-1.02) APTT (26.0-36.3) seconds Sodium (135-145) mmol/L Potassium (3.5-5.0) mmol/L Chloride (101-111) mmol/L Carbon Dioxide (22-32) mmol/L Anion Gap (2-11) mmol/L BUN (6-24) mg/dL Creatinine (0.51-0.95) mg/dL Est GFR ( Amer) (>60) Est GFR (Non-Af Amer) (>60) BUN/Creatinine Ratio (8-20) Glucose (70-100) mg/dL Lactic Acid 0.6 (0.5-2.0) mmol/L Calcium (8.6-10.3) mg/dL Total Bilirubin (0.2-1.0) mg/dL AST (13-39) U/L ALT (7-52) U/L Alkaline Phosphatase (34-104) U/L Total Creatine Kinase (10-223) U/L CK-MB (CK-2) (0.6-6.3) ng/mL Troponin I (<0.04) ng/mL C-Reactive Protein (<8.01) mg/L B-Natriuretic Peptide 58 (<=100) pg/mL Total Protein (6.4-8.9) g/dL Albumin (3.2-5.2) g/dL Globulin (2-4) g/dL Albumin/Globulin Ratio (1-3) Microbiology and Other Data: Microbiology 08/01/18 20:13 Influenza Types A,B Antigen - Final Nasopharyngeal Specimen received for Influenza A/B Molecular testing Assess/Plan/Problems-Billing Assessment: Pt is a 73 yof with PMHx anxiety, GERD who presents with pleural effusion, unknown cause. - Patient Problems (1) Pleural effusion Comment: -Thoracentesis done with large residual pleural effusion -Path report states metastatic adenocarcinoma; negative for TB -CT CAP with contrast ordered for morning -Oncology consult ordered (2) Anxiety Comment: -Continue home medications (3) GERD (gastroesophageal reflux disease) Comment: -Famotidine ordered (4) Hypokalemia Comment: -Resolved (5) DVT prophylaxis Comment: -SCDs (6) Full code status Status and Disposition: Observation. Discharge when stable.
[2018-08-03] MEDS: Acetaminophen TAB* 325 MG PO PRN (21:46)
[2018-08-03] MEDS: traZODone TAB* 50 MG TAB PO SCH (21:46)
[2018-08-03] MEDS: Melatonin 3 MG TAB PO PRN (21:46)
[2018-08-04 06:56] LABS: Hematocrit 36 % (35-47); Mean Corpuscular HGB Conc 33 g/dl (31-36); Mean Corpuscular Hemoglobin 28 pg (27-31); Mean Corpuscular Volume 85 fL (80-97); Mean Platelet Volume 8.9 fL (7.4-10.4); Platelet Count 314 10^3/ul (150-450); Red Cell Distribution Width 14 % (10.5-15); White Blood Count 10.1 10^3/ul (3.5-10.8)
[2018-08-04] MEDS ORDERED: Iohexol 300* (CONTRAST) 10 ML SDV IV ONE (08:00)
[2018-08-04] MEDS: Furosemide IV* 10 MG/ML 2 ML VIAL (20 MG) IV SLOW PU SCH (08:29)
[2018-08-04] MEDS: Sertraline* 100 MG TAB PO SCH (11:13)
[2018-08-04] MEDS: Magnesium Oxide TAB* 400 MG PO SCH (11:13)
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
[2018-08-04] MEDS: NS 0.9% 1000 ML** 1,000 ML IV SCH ×2 (14:00→17:35)
[2018-08-04 15:51] LABS: Lactate Dehydrogenase, BF 597 U/L
--- NOTE | 2018-08-04 18:31 | PN ---
Progress Note - Progress Note Date of Service: 08/04/18 - Pulm f/u note Note: Pt seen and examined at bedside. Pt reports having SOB with ambulation. Denies cough or sputum production. Active Medications Generic Name Dose Route Start Last Admin Trade Name Freq PRN Reason Stop Dose Admin Acetaminophen 650 mg 08/01/18 22:26 08/03/18 21:46 Tylenol Tab* PO 650 mg Q6H PRN Administration FEVER/PAIN Cyclobenzaprine HCl 5 mg 08/01/18 22:28 Flexeril Tab* PO TID PRN SPASMS Diazepam 5 mg 08/01/18 22:28 Valium Tab(*) PO TID PRN SPASMS - BACK Famotidine 20 mg 08/01/18 22:28 08/02/18 22:24 Pepcid Tab* PO 20 mg BID PRN Administration GERD Furosemide 20 mg 08/03/18 08:00 08/04/18 08:29 Lasix Iv* IV SLOW PU 20 mg 0800 MAHSA Administration Sodium Chloride 1,000 mls @ 75 mls/hr 08/04/18 08:45 08/04/18 17:35 Ns 0.9% 1000 Ml IV 08/04/18 22:04 Not Given PER RATE MAHSA Magnesium Oxide 400 mg 08/02/18 09:00 08/04/18 11:13 Magox 400 Tab* PO 400 mg DAILY MAHSA Administration Melatonin 3 mg 08/02/18 21:00 08/03/18 21:46 Melatonin PO 3 mg BEDTIME PRN Administration INSOMNIA Ondansetron HCl 4 mg 08/01/18 22:26 Zofran Inj* IV Q6H PRN NAUSEA Sertraline HCl 100 mg 08/02/18 09:00 08/04/18 11:13 Zoloft* PO 100 mg DAILY MAHSA Administration Trazodone HCl 50 mg 08/02/18 22:00 08/03/18 21:46 Desyrel Tab* PO 50 mg BEDTIME MAHSA Administration Vital Signs Temp Pulse Resp BP Pulse Ox 97.6 F 88 16 110/64 98 08/04/18 11:43 08/04/18 11:43 08/04/18 11:43 08/04/18 11:43 08/04/18 11:43 O/E: Pt in NAD, sitting up in chair HEENT: PERRLA, no JVD Lungs: Decreased air entry on right side starting from mid lung CVS: S1, S2+, regular Abd: Soft, BS+ Ext: No edema Neuro: Alert, awake, no focal deficits Skin: No rash Laboratory Results - last 24 hr 08/02/18 08/02/18 08/04/18 00:32 00:32 06:39 WBC 10.1 RBC 4.20 Hgb 12.0 Hct 36 MCV 85 MCH 28 MCHC 33 RDW 14 Plt Count 314 MPV 8.9 Fluid Source Pleural Pleural Fluid Total Protein 6.1 Fluid LDH 597 I/R: 73 y o f with h/o anxiety, GERD a/w SOB, found to have large Rt effusion s/ p thoracentesis with removal of 2L of bloody fluid Cytology positive for adenocarcinoma Pt still with significant amount of fluid left after thoracentesis She is symptomatic, will perform rpt thoracentesis for therapeutic benefit CT abdomen reviewed- no mass lesion or lymphadenopathy noted, large rt effusion noted Pain management OOB to chair Oncology consultation noted For possible d/c tomorrow D/w Constanza Rea
[2018-08-04] MEDS: Acetaminophen TAB* 325 MG PO PRN (21:10)
[2018-08-04] MEDS: traZODone TAB* 50 MG TAB PO SCH (21:10)
[2018-08-04] MEDS: Melatonin 3 MG TAB PO PRN (21:10)
--- NOTE | 2018-08-05 08:14 | PN ---
Subjective Date of Service: 08/04/18 Interval History: Late entry Pt seen 08/04 at appx 1750. Pt states that she is still feeling SOB, but she has ambulated further than yesterday. She is considering another thoracentesis prior to discharge. Pt continues to use O2 and continues to have thea cough. She notes that she had diarrhea x1 today. She denies fever, night sweats. Chest pain appears to have resolved. She denies abd pain, n/v, pain in calves. Objective Active Medications: Acetaminophen (Tylenol Tab*) 650 mg PO Q6H PRN PRN Reason: FEVER/PAIN Last Admin: 08/04/18 21:10 Dose: 650 mg Cyclobenzaprine HCl (Flexeril Tab*) 5 mg PO TID PRN PRN Reason: SPASMS Diazepam (Valium Tab(*)) 5 mg PO TID PRN PRN Reason: SPASMS - BACK Famotidine (Pepcid Tab*) 20 mg PO BID PRN PRN Reason: GERD Last Admin: 08/02/18 22:24 Dose: 20 mg Furosemide (Lasix Iv*) 20 mg IV SLOW PU 0800 [facility] Last Admin: 08/04/18 08:29 Dose: 20 mg Magnesium Oxide (Magox 400 Tab*) 400 mg PO DAILY [facility] Last Admin: 08/04/18 11:13 Dose: 400 mg Melatonin (Melatonin) 3 mg PO BEDTIME PRN PRN Reason: INSOMNIA Last Admin: 08/04/18 21:10 Dose: 3 mg Ondansetron HCl (Zofran Inj*) 4 mg IV Q6H PRN PRN Reason: NAUSEA Sertraline HCl (Zoloft*) 100 mg PO DAILY [facility] Last Admin: 08/04/18 11:13 Dose: 100 mg Trazodone HCl (Desyrel Tab*) 50 mg PO BEDTIME [facility] Last Admin: 08/04/18 21:10 Dose: 50 mg Vital Signs: Temp Pulse Resp BP Pulse Ox 98.5 F 75 15 112/58 94 08/05/18 02:59 08/05/18 02:59 08/05/18 02:59 08/05/18 02:59 08/05/18 02:59 Oxygen Devices in Use Now: Nasal Cannula Appearance: Pt is standing up talking. She appears well and in no acute distress. She is not working to breath and can complete sentences. Eyes: No Scleral Icterus, PERRLA Ears/Nose/Mouth/Throat: NL Teeth, Lips, Gums, Clear Oropharnyx, Mucous Membranes Moist Neck: NL Appearance and Movements; NL JVP, Trachea Midline Respiratory: Symmetrical Chest Expansion and Respiratory Effort - L lung CTA; R lung with decreased breath sounds in lower 1/2 Cardiovascular: NL Sounds; No Murmurs; No JVD, RRR, No Edema Abdominal: NL Sounds; No Tenderness; No Distention, No Hepatosplenomegaly Extremities: No Edema, No Clubbing, Cyanosis Neurological: Alert and Oriented x 3 Result Diagrams: 08/04/18 06:39 08/03/18 07:49 Additional Lab and Data: Lab Results 08/01/18 08/01/18 08/01/18 Range/Units 18:45 18:45 18:45 WBC 10.7 (3.5-10.8) 10^3/ul RBC 4.33 (4.00-5.40) 10^6/ul Hgb 12.4 (12.0-16.0) g/dl Hct 38 (35-47) % MCV 87 (80-97) fL MCH 29 (27-31) pg MCHC 33 (31-36) g/dl RDW 14 (10.5-15) % Plt Count 346 (150-450) 10^3/ul MPV 8.9 (7.4-10.4) fL Neut % (Auto) 75.4 % Lymph % (Auto) 14.9 % [place] % (Auto) 7.4 % Eos % (Auto) 1.6 % Baso % (Auto) 0.7 % Absolute Neuts (auto) 8.0 H (1.5-7.7) 10^3/ul Absolute Lymphs (auto) 1.6 (1.0-4.8) 10^3/ul Absolute Monos (auto) 0.8 (0-0.8) 10^3/ul Absolute Eos (auto) 0.2 (0-0.6) 10^3/ul Absolute Basos (auto) 0.1 (0-0.2) 10^3/ul Absolute Nucleated RBC 0 10^3/ul Nucleated RBC % 0 INR (Anticoag Therapy) 1.07 H (0.77-1.02) APTT 29.9 (26.0-36.3) seconds Sodium 137 (135-145) mmol/L Potassium 3.7 (3.5-5.0) mmol/L Chloride 105 (101-111) mmol/L Carbon Dioxide 27 (22-32) mmol/L Anion Gap 5 (2-11) mmol/L BUN 8 (6-24) mg/dL Creatinine 0.57 (0.51-0.95) mg/dL Est GFR ( Amer) 126.5 (>60) Est GFR (Non-Af Amer) 104.6 (>60) BUN/Creatinine Ratio 14.0 (8-20) Glucose 90 (70-100) mg/dL Lactic Acid (0.5-2.0) mmol/L Calcium 8.6 (8.6-10.3) mg/dL Total Bilirubin 0.20 (0.2-1.0) mg/dL AST 16 (13-39) U/L ALT 12 (7-52) U/L Alkaline Phosphatase 78 (34-104) U/L Total Creatine Kinase 76 (10-223) U/L CK-MB (CK-2) 3.2 (0.6-6.3) ng/mL Troponin I 0.00 (<0.04) ng/mL C-Reactive Protein 10.99 H (<8.01) mg/L B-Natriuretic Peptide (<=100) pg/mL Total Protein 6.9 (6.4-8.9) g/dL Albumin 3.5 (3.2-5.2) g/dL Globulin 3.4 (2-4) g/dL Albumin/Globulin Ratio 1.0 (1-3) 08/01/18 08/01/18 Range/Units 18:45 18:45 WBC (3.5-10.8) 10^3/ul RBC (4.00-5.40) 10^6/ul Hgb (12.0-16.0) g/dl Hct (35-47) % MCV (80-97) fL MCH (27-31) pg MCHC (31-36) g/dl RDW (10.5-15) % Plt Count (150-450) 10^3/ul MPV (7.4-10.4) fL Neut % (Auto) % Lymph % (Auto) % [place] % (Auto) % Eos % (Auto) % Baso % (Auto) % Absolute Neuts (auto) (1.5-7.7) 10^3/ul Absolute Lymphs (auto) (1.0-4.8) 10^3/ul Absolute Monos (auto) (0-0.8) 10^3/ul Absolute Eos (auto) (0-0.6) 10^3/ul Absolute Basos (auto) (0-0.2) 10^3/ul Absolute Nucleated RBC 10^3/ul Nucleated RBC % INR (Anticoag Therapy) (0.77-1.02) APTT (26.0-36.3) seconds Sodium (135-145) mmol/L Potassium (3.5-5.0) mmol/L Chloride (101-111) mmol/L Carbon Dioxide (22-32) mmol/L Anion Gap (2-11) mmol/L BUN (6-24) mg/dL Creatinine (0.51-0.95) mg/dL Est GFR ( Amer) (>60) Est GFR (Non-Af Amer) (>60) BUN/Creatinine Ratio (8-20) Glucose (70-100) mg/dL Lactic Acid 0.6 (0.5-2.0) mmol/L Calcium (8.6-10.3) mg/dL Total Bilirubin (0.2-1.0) mg/dL AST (13-39) U/L ALT (7-52) U/L Alkaline Phosphatase (34-104) U/L Total Creatine Kinase (10-223) U/L CK-MB (CK-2) (0.6-6.3) ng/mL Troponin I (<0.04) ng/mL C-Reactive Protein (<8.01) mg/L B-Natriuretic Peptide 58 (<=100) pg/mL Total Protein (6.4-8.9) g/dL Albumin (3.2-5.2) g/dL Globulin (2-4) g/dL Albumin/Globulin Ratio (1-3) Microbiology and Other Data: Microbiology 08/01/18 20:13 Influenza Types A,B Antigen - Final Nasopharyngeal Specimen received for Influenza A/B Molecular testing Assess/Plan/Problems-Billing Assessment: Pt is a 73 yof with PMHx anxiety, GERD who presents with pleural effusion, unknown cause. - Patient Problems (1) Pleural effusion Comment: -Thoracentesis done yesterday with large residual pleural effusion -Path report states metastatic adenocarcinoma; negative for TB -CT CAP ordered and completed -Oncology consulted; thank you for input. Will schedule outpatient appt with Dr. Carver upon discharge. Awaiting lab results, which may take time. (2) Anxiety Comment: -Continue home medications (3) GERD (gastroesophageal reflux disease) Comment: -Famotidine ordered (4) Hypokalemia Comment: -Resolved (5) DVT prophylaxis Comment: -SCDs (6) Full code status Status and Disposition: Observation. Discharge when stable.
[2018-08-05] MEDS: Magnesium Oxide TAB* 400 MG PO SCH (08:48)
[2018-08-05] MEDS: Sertraline* 100 MG TAB PO SCH (08:48)
[2018-08-05] MEDS: Furosemide IV* 10 MG/ML 2 ML VIAL (20 MG) IV SLOW PU SCH (08:48)
[2018-08-05 14:25] VITALS: BP 120/57
[2018-08-05] MEDS: Famotidine TAB* 20 MG PO PRN (15:03)
--- NOTE | 2018-08-05 15:59 | PN ---
Progress Note - Progress Note Date of Service: 08/05/18 - Pulm f/u note Note: Pt seen and examined at bedside. Pt reports feeling better, SOB with walking around Active Medications Generic Name Dose Route Start Last Admin Trade Name Larry PRN Reason Stop Dose Admin Acetaminophen 650 mg 08/01/18 22:26 08/04/18 21:10 Tylenol Tab* PO 650 mg Q6H PRN Administration FEVER/PAIN Cyclobenzaprine HCl 5 mg 08/01/18 22:28 Flexeril Tab* PO TID PRN SPASMS Diazepam 5 mg 08/01/18 22:28 Valium Tab(*) PO TID PRN SPASMS - BACK Famotidine 20 mg 08/01/18 22:28 08/05/18 15:03 Pepcid Tab* PO 20 mg BID PRN Administration GERD Furosemide 20 mg 08/03/18 08:00 08/05/18 08:48 Lasix Iv* IV SLOW PU 20 mg 0800 MAHSA Administration Magnesium Oxide 400 mg 08/02/18 09:00 08/05/18 08:48 Magox 400 Tab* PO 400 mg DAILY MAHSA Administration Melatonin 3 mg 08/02/18 21:00 08/04/18 21:10 Melatonin PO 3 mg BEDTIME PRN Administration INSOMNIA Ondansetron HCl 4 mg 08/01/18 22:26 Zofran Inj* IV Q6H PRN NAUSEA Sertraline HCl 100 mg 08/02/18 09:00 08/05/18 08:48 Zoloft* PO 100 mg DAILY MAHSA Administration Trazodone HCl 50 mg 08/02/18 22:00 08/04/18 21:10 Desyrel Tab* PO 50 mg BEDTIME MAHSA Administration Vital Signs Temp Pulse Resp BP Pulse Ox 98.3 F 92 18 120/57 96 08/05/18 14:25 08/05/18 14:25 08/05/18 14:25 08/05/18 14:25 08/05/18 14:25 O/E: Pt in NAD, sitting up in chair HEENT: PERRLA, no JVD Lungs: Decreased air entry on right side starting from mid lung CVS: S1, S2+, regular Abd: Soft, BS+ Ext: No edema Neuro: Alert, awake, no focal deficits Skin: No rash Laboratory Results - last 24 hr 03/11/19 13:00 Miscellaneous Test See comment CT abdomen reviewed- no mass lesion or lymphadenopathy noted, large rt effusion noted Pain management I/R: 73 y o f with h/o anxiety, GERD a/w SOB, found to have large Rt effusion s/ p thoracentesis with removal of 2L of bloody fluid Cytology positive for adenocarcinoma Pt still with significant amount of fluid left after thoracentesis She is symptomatic, performed rpt thoracentesis for therapeutic benefit, 2L fluid was removed Fluid was resent to lab for further testing Pt tolerated procedure well OOB to chair Oncology consultation noted, pt to f/u as out pt Pt and her had many questions that were answered For possible d/c D/w Constanza Rea
--- NOTE | 2018-08-05 21:50 | PRO ---
THORACENTESIS REPORT: DATE OF PROCEDURE: 08/05/18 PROCEDURE PERFORMED: Ultrasound-guided thoracentesis on the right side. PREPROCEDURAL DIAGNOSIS: Large right pleural effusion. ANESTHESIA: Local anesthesia with 1% lidocaine. DESCRIPTION OF PROCEDURE: Informed consent was obtained from the patient prior to the procedure after all the risks and benefits were thoroughly explained. Appropriate time-out was agreed on by attending staff. The patient was sitting up, leaning forward during the procedure. A CareFusion 8-Peruvian thoracentesis catheter was utilized. Area was anesthetized with chlorhexidine. Covered with sterile drape. 1% lidocaine was instilled into the intercostal space subdermally down into the pleural space taking precautions. Catheter was left in place and needle was removed. 2 L of dark bloody fluid was drained under manual suction. The patient tolerated the procedure well. Catheter was then removed and a Band-Aid was placed. The patient reported symptomatic benefit. [id number] #: [id number] VI
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
[2018-08-06 13:30] LABS: TB Mitogen minus Nil Result 9.36 IU/mL; TB Nil Result 0.01 IU/mL; TB1 Ag minus Nil Result 0 IU/mL; TB2 Ag minus Nil Result 0.02 IU/mL
== END 2018-08-05 17:10 | disposition home or self-care (01) | DRG 181 ==
LOC: ED 18:05 → MED 22:26 → OBSVTOIN 08-03 13:05
PROVIDERS: ADMIT Student in an Organized Health Care Education/Training Program; ATTEND Internal Medicine
PROC: 0W9930Z Drainage of Right Pleural Cavity with Drainage Device, Percutaneous Approach (ICD-10-PCS; principal; 2018-08-02)
PROC: 0W9930Z Drainage of Right Pleural Cavity with Drainage Device, Percutaneous Approach (ICD-10-PCS; 2018-08-05)
DX: C34.90 Malignant neoplasm of unspecified part of unspecified bronchus or lung (principal); J91.0 Malignant pleural effusion; E87.6 Hypokalemia; F41.8 Other specified anxiety disorders; R09.02 Hypoxemia; K21.9 Gastro-esophageal reflux disease without esophagitis; Z91.040 Latex allergy status; Z91.018 Allergy to other foods; Z91.048 Other nonmedicinal substance allergy status; Z82.49 Family history of ischemic heart disease and other diseases of the circulatory system; Z82.3 Family history of stroke; Z87.828 Personal history of other (healed) physical injury and trauma; Z80.0 Family history of malignant neoplasm of digestive organs; Z80.42 Family history of malignant neoplasm of prostate; Z80.8 Family history of malignant neoplasm of other organs or systems; M25.551 Pain in right hip
CPT/HCPCS: 36415; 71045; 71260; 71275; 74177; 76604; 80048; 80053; 81003; 81445; 82550; 82553; 82803; 83605; 83615; 83880; 83986; 84157; 84311; 84484; 85025; 85027; 85610; 85730; 86140; 86480; 87040; 87070; 87116; 87205; 87206; 88112; 88305; 88341; 88342; 88360; 89051; 93005; 99284; A9270-GY; G0378; J1940; Q9967

== ENCOUNTER → 2018-08-12 11:11 | Day surgery (SDC) | payer MEDICARE, BC ==
--- NOTE | 2018-08-12 20:30 | PRO ---
THORACENTESIS REPORT: DATE OF PROCEDURE: 08/12/18 - [facility] PROCEDURE PERFORMED: Ultrasound-guided thoracentesis on the right side. PREPROCEDURAL DIAGNOSIS: Large right pleural effusion. INDICATION FOR THE PROCEDURE: Symptomatic benefit. DESCRIPTION OF PROCEDURE: Informed consent was obtained from the patient prior to the procedure after all the risks and benefits were thoroughly explained. The patient recently was diagnosed with adenocarcinoma found on the pleural fluid. Had worsening shortness of breath. Appropriate time-out was agreed on by attending staff prior to the procedure. The patient was sitting up and leaning forward. A portable ultrasound was utilized at bedside to [place] site for insertion of the catheter. Strict aseptic precautions and all barrier techniques were utilized. Area was sterilized with chlorhexidine. Sterile drape was applied. CareFusion 8-Arabic thoracentesis catheter was utilized. Local anesthesia was achieved with lidocaine intradermally subcutaneously down into the pleural space taking precautions. #11 scalpel blade was used to make stab incision. CareFusion thoracentesis catheter was then inserted under manual suction. Catheter was left in place and needle was removed. 1200 mL of bloody fluid was drained under manual suction. Catheter was then removed. The patient tolerated the procedure well. Band-Aid was applied at the area. [id number]/[facility] #: [id number] VI
== END | disposition home or self-care (01) ==
LOC: OR 11:11
PROVIDERS: ATTEND Internal Medicine
DX: J90 Pleural effusion, not elsewhere classified (principal); F41.8 Other specified anxiety disorders
CPT/HCPCS: 32554; 76604

== ENCOUNTER → 2018-08-19 06:41 | Day surgery (SDC) | payer MEDICARE, BC ==
[~2018-08-19 06:41] MED LIST: Buffered Lidocaine 1% SYRIN* 1 ML/SYRINGE INTRADERM ONE; Dexamethasone TAB* 4 MG ONE; Dexamethasone TAB* 4 MG PO ONE; DiMENhydriNATE IV* 50 MG/ML VIAL IV PUSH PRN; Famotidine IV* 10 MG/ML 2 ML (20 mg) IV ONE; Famotidine IV* 10 MG/ML 2 ML (20 mg) ONE; Lactated Ringers 1000 ML Bag* 1,000 ML IV SCH; Midazolam* 1 MG/ML 5 ML VIAL (5 MG) ONE; Naloxone* 0.4 MG/ML 1 ML VIAL IV PRN; Ondansetron ODT TAB* 4 MG ONE; Ondansetron TAB* 4 MG PO ONE; PROCHLORPERAZINE INJ 5 MG/ML 2 ML VIAL IV PRN; Propofol* 500 MG/50 ML BTL ONE; ceFAZolin 2 GM in NS PREMIX(*) 2 GM/100 ML BAG IVPB ONE; fentaNYL* 50 MCG/ML 2 ML VIAL (100 MCG VIAL) IV PRN; fentaNYL* 50 MCG/ML 2 ML VIAL (100 MCG VIAL) ONE; oxyCODONE/Acetamin 5/325 MG* TAB PO PRN
[2018-08-19 11:01] VITALS: BP 121/63
--- NOTE | 2018-08-19 13:28 | OP ---
CC: Lebron Clarke MD; Dr. Hines; Dr. Yrok; Dr. Carver* OPERATIVE REPORT: DATE OF OPERATION: 08/19/18 - [facility] DATE OF : 49 SURGEON: Lebron Clarke MD PEDIATRICIAN: None. ANESTHESIOLOGIST: Dr. Espinoza. ANESTHESIA: LMAC anesthesia. PRE-OP DIAGNOSIS: Malignant right pleural effusion. POST-OP DIAGNOSIS: Malignant right pleural effusion. OPERATIVE PROCEDURE: Placement of right PleurX catheter. DESCRIPTION OF PROCEDURE: The patient was supine on the operating table. After adequate intravenous sedation, compression stockings, Thang Hugger warmer, and intravenous antibiotics, the patient was put up on a roll to incline her towards her left. The right chest was prepped with antiseptic, draped in a sterile fashion. Local infiltrative anesthesia was administered in approximately the posterior axillary line at the region of the 10th rib and local anesthetic was administered and the needle was walked in over the surface of the rib into the pleural space where pleural fluid was forthcoming. The guidewire was then passed and dilator utilized until the peel-away introducer was placed and then the catheter was delivered through the peel-away introducer. The catheter was tunneled anteriorly by approximately 10 cm and out through an anterior incision. It was sutured to the skin with silk suture. The posterior incision was closed with Vicryl suture followed by Steri- Strips. Suction bottle was used to collect about a liter of fluid from the chest space. She started to cough at that point and suction was stopped. The catheter was bandaged with Tegaderm in the usual fashion. She tolerated this well, was brought to recovery in good condition. No complications. No drains, other than the PleurX. Sponge and instrument counts were correct. Estimated blood loss is less than 10 mL. There was a liter of pleural fluid that was sent to laboratory. [id number]/[facility] #: [id number] [facility]
[2018-08-20 19:07] LABS: Hepatitis C Antibody Nonreactive (Nonreactive)
== END | disposition home or self-care (01) ==
LOC: OR 06:41
PROVIDERS: ATTEND Surgery
DX: J91.0 Malignant pleural effusion (principal)
CPT/HCPCS: 36415; 71045; 86803; A9270-GY; J0690; J2250; J2704; J3010; J8540